=== PATIENT | female | born 1930 | race Caucasian/White ===

== ENCOUNTER → 2017-03-31 | Outpatient (CLI) | payer MEDICARE, OTHER ==
[2015-11-17 15:00] VITALS: BP 96/50
[~2017-03-31] MED LIST: ASPI81TA50 PO; CALC-112 PO; ERGO500027 PO; LATA2.5D3 OP; NAPR220C4 PO; OXYB10TA PO; OXYB5SYR2 PO; OXYC-327 PO; PREN1TAB12 PO; TOLT4CAP PO; TRAM50TA PO
--- NOTE | 2017-03-31 14:16 | RAD ---
Left leg venous Doppler study: Clinical indications: Left leg swelling and pain. Findings: Duplex sonography (including ramirez scale evaluation and color flow and waveform spectral analysis) of the proximal aspect of the greater saphenous vein and the proximal aspect of the profunda femoral vein and the entire length of the common femoral and superficial femoral and popliteal veins and the tibioperoneal trunk and the proximal aspect of the posterior tibial veins of the left leg was performed. Normal compressibility, augmentation of color Doppler flow after calf compression, and respiratory variation of Doppler flow is seen. Thus, there are no sonographic findings of deep venous thrombosis within these veins. Impression: There are no sonographic findings of deep venous thrombosis within the veins discussed above of the left lower extremity.
== END | disposition home or self-care (01) ==
LOC: US 15:57
PROVIDERS: ATTEND Physical Medicine & Rehabilitation
DX: M79.89 Other specified soft tissue disorders (principal)
CPT/HCPCS: 93971

== ENCOUNTER 2018-01-28 23:24 | Emergency (ER) | payer MEDICARE, OTHER ==
[2018-01-29] MEDS: MORPHINE SULFATE 4 MG/ML DISP.SYRIN. IM (01:43)
[2018-01-29] MEDS: predniSONE 20 MG TABLET PO (02:15)
== END 2018-01-29 03:07 | disposition home or self-care (01) ==
LOC: ER 23:24
DX: M25.551 Pain in right hip (principal); Z91.041 Radiographic dye allergy status
CPT/HCPCS: 73502; 96372; 99284; J2270; J7512

== ENCOUNTER → 2018-03-24 | Outpatient (CLI) | payer MEDICARE, OTHER | END | disposition home or self-care (01) | LOC: PMGWOUND 08:35 | DX: T25.221A Burn of second degree of right foot, initial encounter (principal); S91.331A Puncture wound without foreign body, right foot, initial encounter; T31.0 Burns involving less than 10% of body surface; N18.9 Chronic kidney disease, unspecified; M81.0 Age-related osteoporosis without current pathological fracture; M19.90 Unspecified osteoarthritis, unspecified site; G81.94 Hemiplegia, unspecified affecting left nondominant side; Z79.82 Long term (current) use of aspirin; Z96.653 Presence of artificial knee joint, bilateral; Z96.612 Presence of left artificial shoulder joint; X32.XXXA Exposure to sunlight, initial encounter; Y93.9 Activity, unspecified; Y99.8 Other external cause status; Y92.096 Garden or yard of other non-institutional residence as the place of occurrence of the external cause | CPT/HCPCS: 97597 ==

== ENCOUNTER → 2018-03-31 | Outpatient (CLI) | payer MEDICARE, OTHER | END | disposition home or self-care (01) | LOC: PMGWOUND 09:14 | DX: T25.021D Burn of unspecified degree of right foot, subsequent encounter (principal); S91.331D Puncture wound without foreign body, right foot, subsequent encounter; T31.0 Burns involving less than 10% of body surface; M81.0 Age-related osteoporosis without current pathological fracture; M19.90 Unspecified osteoarthritis, unspecified site; I21.4 Non-ST elevation (NSTEMI) myocardial infarction; N18.9 Chronic kidney disease, unspecified; Z96.612 Presence of left artificial shoulder joint; Z96.653 Presence of artificial knee joint, bilateral; X08.8XXD Exposure to other specified smoke, fire and flames, subsequent encounter | CPT/HCPCS: 97597 ==

== ENCOUNTER → 2018-04-14 | Outpatient (CLI) | payer MEDICARE, OTHER | END | disposition home or self-care (01) | LOC: PMGWOUND 09:20 | DX: T25.021D Burn of unspecified degree of right foot, subsequent encounter (principal); M81.0 Age-related osteoporosis without current pathological fracture; I21.4 Non-ST elevation (NSTEMI) myocardial infarction; M19.90 Unspecified osteoarthritis, unspecified site; N18.9 Chronic kidney disease, unspecified; T31.0 Burns involving less than 10% of body surface; Z96.653 Presence of artificial knee joint, bilateral; Z96.612 Presence of left artificial shoulder joint; X08.8XXD Exposure to other specified smoke, fire and flames, subsequent encounter | CPT/HCPCS: 99214 ==

== ENCOUNTER → 2018-04-28 | Outpatient (CLI) | payer MEDICARE, OTHER | END | disposition home or self-care (01) | LOC: PMGWOUND 09:23 | DX: T25.221D Burn of second degree of right foot, subsequent encounter (principal); S91.331D Puncture wound without foreign body, right foot, subsequent encounter; M81.0 Age-related osteoporosis without current pathological fracture; I21.4 Non-ST elevation (NSTEMI) myocardial infarction; M19.90 Unspecified osteoarthritis, unspecified site; N18.9 Chronic kidney disease, unspecified; T31.0 Burns involving less than 10% of body surface; Z96.653 Presence of artificial knee joint, bilateral; Z96.612 Presence of left artificial shoulder joint; X08.8XXD Exposure to other specified smoke, fire and flames, subsequent encounter | CPT/HCPCS: 97597 ==

== ENCOUNTER → 2018-05-12 | Outpatient (CLI) | payer MEDICARE, OTHER ==
[2018-03-15 07:00] VITALS: BP 126/53
[~2018-05-12] MED LIST changes: +CIPR250T30 PO; +HYDR-971 PO; +METH4TAB2 PO; +NAPR-677 PO
== END | disposition home or self-care (01) ==
LOC: PMGWOUND 09:11
PROVIDERS: ATTEND Emergency Medicine Undersea and Hyperbaric Medicine
DX: T25.221D Burn of second degree of right foot, subsequent encounter (principal); M81.0 Age-related osteoporosis without current pathological fracture; I21.4 Non-ST elevation (NSTEMI) myocardial infarction; M19.90 Unspecified osteoarthritis, unspecified site; N18.9 Chronic kidney disease, unspecified; T31.0 Burns involving less than 10% of body surface; Z96.653 Presence of artificial knee joint, bilateral; Z96.612 Presence of left artificial shoulder joint; Z79.82 Long term (current) use of aspirin; X08.8XXD Exposure to other specified smoke, fire and flames, subsequent encounter
CPT/HCPCS: 99214; G0463

== ENCOUNTER → 2018-06-02 | Outpatient (CLI) | payer MEDICARE, OTHER ==
[2018-03-15 07:00] VITALS: BP 126/53
== END | disposition home or self-care (01) ==
LOC: PMGWOUND 09:25
PROVIDERS: ATTEND Emergency Medicine Undersea and Hyperbaric Medicine
DX: L55.2 Sunburn of third degree (principal); M81.0 Age-related osteoporosis without current pathological fracture; N18.9 Chronic kidney disease, unspecified; Z79.82 Long term (current) use of aspirin
CPT/HCPCS: 99214; G0463

== ENCOUNTER → 2018-08-12 | Outpatient (CLI) | payer MEDICARE, OTHER ==
[2018-03-15 07:00] VITALS: BP 126/53
--- NOTE | 2018-08-12 12:44 | RAD ---
Carotid ultrasound, 08/12/2018: HISTORY: Aortic valve disease Duplex evaluation of the carotid arteries and neck was performed including grayscale, color-flow and spectral Doppler analysis. There is considerable atherosclerotic plaquing at both carotid bifurcations. This obscures the underlying vascular lumens. On the right, the peak systolic velocity in the proximal internal carotid artery was 121 cm per sec with an end-diastolic velocity of 30 cm/s producing an internal carotid to common carotid artery ratio 1.6. These Doppler findings suggest narrowing in the 0-50 percent diameter range. On the left, a higher velocity of 172 cm/s was obtained from what was thought to be the proximal internal carotid artery, however, that cannot be stated with certainty due to poor definition of the vessels through this region. Antegrade flow is present in both vertebral arteries in the neck. IMPRESSION: Extensive calcific plaquing at both carotid bifurcations with 0-50 percent diameter narrowing of the proximal right internal carotid artery. There is probably more severe narrowing on the left, however, the internal carotid artery was not clearly delineated due to shadowing from the plaquing. CT angiography is suggested for further evaluation, if clinically indicated. Note: Stenosis calculations for CT, MRA and conventional angiography are based upon determination of the distal ICA diameter in accordance with the NASCET methodology. Stenosis calculations for Doppler studies are derived from validated velocity criteria which are known to correlate with NASCET methodology of determining stenosis. Electronically signed by: Sandeep Grayson MD (08/12/2018 12:40 PM) [facility]
--- NOTE | 2018-08-16 17:11 | CARD ---
MR#: [id number] Date of Study: 08/12/2018 Ordering Physician: CLIVE HERRERA, Referring Physician: CLIVE HERRERA, Tech: Nadya Harley LASHAY APPROVED REPORT EXAM: Two-dimensional and M-mode echocardiogram with Doppler and color Doppler. Other Information Quality : AverageHR: 61bpm Rhythm : NSR INDICATION Aortic Valve Disease Mitral Valve Disease 2D DIMENSIONS Left Atrium(2D)3.9 (1.6-4.0cm)IVSd1.4 (0.7-1.1cm) Aortic Root(2D)3.2 (2.0-3.7cm)LVDd4.1 (3.9-5.9cm) LVOT Diameter1.8 (1.8-2.4cm)PWd1.1 (0.7-1.1cm) IVSs1.5 (0.8-1.2cm)LVDs2.3 (2.5-4.0cm) FS (%) 42.6 %PWs1.7 (0.8-1.2cm) SV54.9 mlLVEF(%)70.0 (>50%) M-Mode DIMENSIONS Left Atrium(MM)3.57 (2.5-4.0cm)Aortic Root3.40 (2.2-3.7cm) Aortic Valve AoV Peak Lior.252.3cm/sAoV VTI59.9cm AO Peak GR.28.0mmHgLVOT Peak Lior.89.2cm/s LVOT VTI 22.04cmAO Mean GR.16mmHg SANDEE (VMAX)0.11rn8PCW (VTI)0.93cm2 Mitral Valve MV E Dfxijnwn89.0cm/sMV E Peak Gr.103mmHg MV DECEL [id number] A Ptfdddtd774.4cm/s MV FRT371ilJ/A Ratio0.6 MVA (PHT)2.02cm2 TDI E/Lateral E'11.7E/Medial E'15.8 Pulmonary Valve PV Peak Tqmumbcz45.3cm/sPV Peak Grad.4mmHg Tricuspid Valve TR P. Zrbfrnua057aw/sRAP XGOOBHVN1cpIw TR Peak Gr.66icRuRZFD07ufEa LEFT VENTRICLE The left ventricle is normal size. There is mild concentric left ventricular hypertrophy. The left ve ntricular systolic function is normal and the ejection fraction is within normal range. The Ejection Fraction is 70%. There is normal LV segmental wall motion. Transmitral Doppler flow pattern is Grade III-reversible restrictive diastolic dysfunction. RIGHT VENTRICLE The right ventricle is dilated. There is normal right ventricular wall thickness. The right ventricul ar systolic function is normal. ATRIA The left atrium size is normal. The right atrium size is mildly dilated. The interatrial septum is in tact with no evidence for an atrial septal defect or patent foramen ovale as noted on 2-D or Doppler imaging. AORTIC VALVE The aortic valve is trileaflet. The aortic valve is moderately calcified. Doppler and Color Flow reve aled mild aortic regurgitation. There is mild to moderate valvular aortic stenosis. Calculated aortic valve area is 0.93 cm2 with maximum pressure gradient of 28 mmHg and mean pressure gradient of 16 mm Hg. MITRAL VALVE The mitral valve leaflets are calcified. There is no evidence of mitral valve prolapse. There is no m itral valve stenosis. Doppler and Color-flow revealed moderate mitral regurgitation. TRICUSPID VALVE The tricuspid valve is normal in structure and function. Doppler and Color Flow revealed trace to mil d tricuspid regurgitation. The PA pressure was estimated at 25 mmHg. There is no tricuspid valve prol apse or vegetation. There is no tricuspid valve stenosis. PULMONIC VALVE Pulmonic valve not well visualized. Doppler and Color Flow revealed no pulmonic valvular regurgitatio n. There is no pulmonic valvular stenosis. GREAT VESSELS The aortic root is normal in size. The ascending aorta is normal in size. PERICARDIAL EFFUSION There is no evidence of significant pericardial effusion. Critical Notification Critical Value: No <Conclusion> The left ventricular systolic function is normal and the ejection fraction is within normal range. T he Ejection Fraction is 70%. There is mild concentric left ventricular hypertrophy. Transmitral Doppler flow pattern is Grade III-reversible restrictive diastolic dysfunction. The right ventricle is dilated. The left atrium size is normal. The right atrium size is mildly dilated. The aortic valve is trileaflet. The aortic valve is moderately calcified. Doppler and Color Flow revealed mild aortic regurgitation. There is mild to moderate valvular aortic stenosis. Calculated aortic valve area is 0.93 cm2 with maximum pressure gradient of 28 mmHg and mean pressure gradient of 16 mmHg. Doppler and Color-flow revealed moderate mitral regurgitation. Doppler and Color Flow revealed trace to mild tricuspid regurgitation. The PA pressure was estimated at 25 mmHg. Pulmonic valve not well visualized. There is no evidence of significant pericardial effusion. Signed by : Clive Herrera MD Electronically Approved : 08/16/2018 17:10:02
== END | disposition home or self-care (01) ==
LOC: US 13:09
PROVIDERS: ATTEND Internal Medicine Cardiovascular Disease
DX: I08.0 Rheumatic disorders of both mitral and aortic valves (principal)
CPT/HCPCS: 93306; 93880

== ENCOUNTER 2018-12-03 08:55 | Emergency (ER) | payer MEDICARE, OTHER ==
[~2018-12-03] VITALS: Ht 162.6 cm; Wt 67.1 kg
[~2018-12-03 08:55] MED LIST changes: +HYDR-3164 PO; -HYDR-971 PO; -OXYC-327 PO; +OXYC1TAB19 PO
[2018-12-03 09:10] VITALS: BP 111/72
--- NOTE | 2018-12-03 10:57 | RAD ---
3 views right ankle HISTORY: Pain and swelling AP lateral oblique views There is gross osteopenia limiting sensitivity for possible nondisplaced fracture. The tibiotalar relationship is normal. There is deformity of the second metatarsal. IMPRESSION: Deformity of the second metatarsal appears to be an old fracture. No acute findings. 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 The visualized osseous structures appear grossly intact. There is arterial calcification. IMPRESSION: No acute findings. Electronically signed by: Jon Whitt III, MD (12/03/2018 10:54 AM) [facility]
--- NOTE | 2018-12-03 11:09 | PHYS DOC ---
Past Medical History Past Medical History: Other Additional Past Medical Histor: CHRONIC PAIN Past Surgical History: Other Additional Past Surgical Histo: shoulder ; knee; back Alcohol Use: None Drug Use: None Adult General Chief Complaint Chief Complaint: ANKLE PROBLEM [facility] HPI Patient is a 87 year old female who presents with pain in her right ankle after she states she stepped down wrong. She states that it hurts over the top of her fourth metatarsal wraps around to her medial malleolus. She denies falls or other injury. She has taken itax-xnb-vloohdi pain medication with moderate relief. Review of Systems Review of Systems Constitutional: Denies fever or chills [] Respiratory: Denies cough or shortness of breath [] Cardiovascular: No additional information not addressed in HPI [] GI: Denies abdominal pain, nausea, vomiting, bloody stools or diarrhea [] : Denies dysuria or hematuria [] Musculoskeletal: See history of present illness Integument: Denies rash or skin lesions [] Neurologic: Denies headache, focal weakness or sensory changes [] Endocrine: Denies polyuria or polydipsia [] All other systems were reviewed and found to be within normal limits, except as documented in this note. Allergies Allergies Allergies Coded Allergies Type Severity Reaction Last Updated Verified No Known Medication Allergies Allergy Unknown 03/14/18 Yes Iodinated Contrast- Oral and IV Dye Adverse Reaction Intermediate Diarrhea 08/21 Yes Physical Exam Physical Exam Constitutional: Well developed, well nourished, no acute distress, non-toxic appearance. [] Cardiovascular:Heart rate regular rhythm, no murmur [] Lungs & Thorax: Bilateral breath sounds clear to auscultation [] Abdomen: Bowel sounds normal, soft, no tenderness, no masses, no pulsatile masses. [] Skin: Warm, dry, no erythema, no rash. [] Back: No tenderness, no CVA tenderness. [] Extremities: tenderness to the right ankle with no gross deformity noted, no cyanosis, no clubbing, ROM slightly decreased due to pain, no edema. [] Neurologic: Alert and oriented X 3, normal motor function, normal sensory function, no focal deficits noted. [] Psychologic: Affect normal, judgement normal, mood normal. [] Current Patient Data Vital Signs Vital Signs Date Time Temp Pulse Resp B/P (MAP) Pulse Ox O2 Delivery O2 Flow Rate FiO2 12/03/18 09:10 97.7 63 16 111/72 (85) 97 Room Air 97.7 EKG EKG [] Radiology/Procedures Radiology/Procedures []PATIENT: SR LAURA RICHMONDACCOUNT: [id number]#: [id number] : 1930 LOCATION: ER AGE: 87 SEX: F EXAM STATUS: REG ER ORD. PHYSICIAN: RACHEL VICTORIA APRN REASON: pain after stepping down wrong PROCEDURE: ANKLE RIGHT 3V 3 views right ankle HISTORY: Pain and swelling AP lateral oblique views There is gross osteopenia limiting sensitivity for possible nondisplaced fracture. The tibiotalar relationship is normal. There is deformity of the second metatarsal. IMPRESSION: Deformity of the second metatarsal appears to be an old fracture. No acute findings. 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 The visualized osseous structures appear grossly intact. There is arterial calcification. IMPRESSION: No acute findings. Electronically signed by: Luis Covington III, MD (12/03/2018 10:54 AM) [facility] DICTATED and SIGNED BY: LUIS COVINGTON III, MD DATE: 12/03/18 105 Course & Med Decision Making Course & Med Decision Making Pertinent Labs and Imaging studies reviewed. (See chart for details) []The patient was negative for acute fracture. She was placed in an Angelito wrap for comfort. Dragon Disclaimer Dragon Disclaimer This electronic medical record was generated, in whole or in part, using a voice recognition dictation system. Departure Departure Impression: Primary Impression: Foot pain Disposition: 01 HOME, SELF-CARE Condition: STABLE Referrals: ZAHEER CASTELLON MD (PCP) Patient Instructions: Foot Sprain Additional Instructions: You may take ibuprofen and Tylenol or pain. Follow-up with podiatry for a recheck if not improving in one week. RACHEL VICTORIA APRN Dec 03, 2018 11:09
[2019-03-14] MEDS ORDERED: GABA300C18 PO (14:29)
[2019-03-14] MEDS ORDERED: PROP15DR EACHEYE (14:29)
[2019-03-14] MEDS ORDERED: TRAM50TA PO (14:29)
== END 2018-12-03 11:20 | disposition home or self-care (01) ==
LOC: ER 08:55
DX: M25.571 Pain in right ankle and joints of right foot (principal); G89.29 Other chronic pain; M85.871 Other specified disorders of bone density and structure, right ankle and foot; Z91.041 Radiographic dye allergy status; Z98.890 Other specified postprocedural states
CPT/HCPCS: 73590; 73610; 99283

== ENCOUNTER → 2019-03-15 | Outpatient (CLI) | payer MEDICARE, OTHER ==
[~2019-03-15] MED LIST changes: +GABA300C18 PO; +GADOTERATE 7.5 MMOL/15ML VIAL. IVP ONE; +PROP15DR EACHEYE
--- NOTE | 2019-03-15 17:06 | KCIC ---
MRI of the lumbar spine without and with contrast 03/15/2019 CLINICAL HISTORY: Low back pain. History of previous lumbar spine surgery. TECHNIQUE: Unenhanced T1-weighted and T2-weighted sagittal and axial inversion recovery sagittal images of the lumbar spine were obtained. After the intravenous administration of 13.5 cc of Dotarem enhanced T1-weighted sagittal and axial images of the lumbar spine were obtained. FINDINGS: Comparison is made to radiographs of the lumbar spine dated 06/23/2010. Very mild S-shaped curvature of the thoracolumbar spine is seen. The patient is post left sided fusion using pedicle screws and stabilizing rods extending from L2 to L5. Bone graft material seen within the L2-3 disc space. Fusion across the L3-4 disc space is seen. Degenerative signal changes are seen involving the L1-2, L4-5 and L5-S1 discs. Loss of height of the L4-5 disc is noted. Degenerative signal changes are seen within the marrow surrounding all the disks of the lumbar spine. An old compression fracture of the L1 vertebral body is seen. This vertebral body has lost approximately 80 percent of its normal height. No significant retropulsion of bone fragments into the central spinal canal is seen. No acute compression fracture of the lumbar vertebrae is noted. The conus medullaris is normal in position and signal characteristics. A 1 cm rounded high signal intensity lesion is involving the midpole left kidney on the T2-weighted images. This likely represents a cyst. At the T11-12 disc space there is a mild to moderate generalized disc bulge. Degenerative changes are seen involving the facet joints bilaterally. These findings result in mild central spinal canal stenosis without evidence of cord impingement. No neural foraminal stenosis is seen. At the T12-L1 disc space there is a mild to moderate generalized disc bulge. Patient is post laminectomy. Degenerative changes are seen involving the facet joints bilaterally. These findings do not result in significant central spinal canal stenosis. Mild to moderate right greater than left neural foraminal stenosis is seen. At the L1-2 disc space there is a mild to moderate generalized disc bulge. Posterior vertebral body osteophyte formation is seen which measures 5 mm in AP diameter. Degenerative changes are seen involving the facet joints bilaterally. There is moderate ligamentum flavum hypertrophy bilaterally. These findings result in severe central spinal canal stenosis. Moderate right greater than left neural foraminal stenosis is seen. At the L2-3 level the patient is post laminectomy. Degenerative changes are seen involving the facet joints bilaterally. These findings do not result in significant central spinal canal stenosis. Mild bilateral neural foraminal stenosis is seen. At the L3-4 level patient is post right hemilaminotomy. Degenerative changes are seen involving the facet joints bilaterally. These findings do not result in significant central spinal canal stenosis. Mild to moderate left greater than right neural foraminal stenosis is seen. At the L4-5 disc space, the patient is post left hemilaminotomy. Degenerative changes are seen involving the facet joints bilaterally. There is mild right ligamentum flavum hypertrophy. There is prominence of the posterior epidural fat. These findings when combined do not result in significant central spinal canal stenosis. Mild to moderate left greater than right neural foraminal stenosis is seen. At the L5-S1 disc space is a moderate generalized disc bulge. Degenerative changes are seen involving the facet joints bilaterally. There is moderate ligamentum flavum hypertrophy bilaterally. These findings when combined result in mild to moderate central spinal canal stenosis. Moderate to severe left greater than right neural foraminal stenosis is seen. IMPRESSION: 1. Extensive postsurgical changes are seen as discussed above. 2. The changes of degenerative disc disease are seen throughout the lower thoracic and throughout the lumbar spine. These findings result in mild central spinal canal stenosis at T11-12, severe central spinal canal stenosis at L1-2 and mild to moderate central spinal canal stenosis at L5-S1. Multilevel neural foraminal stenosis of varying severity is seen as discussed above. Electronically signed by: Flavio Martinez MD (03/15/2019 5:03 PM) [facility]
== END | disposition home or self-care (01) ==
LOC: KCIC MRI 13:05
PROVIDERS: ATTEND Physician Assistant Surgical
DX: M51.15 Intervertebral disc disorders with radiculopathy, thoracolumbar region (principal); M51.17 Intervertebral disc disorders with radiculopathy, lumbosacral region; M47.25 Other spondylosis with radiculopathy, thoracolumbar region; M47.28 Other spondylosis with radiculopathy, sacral and sacrococcygeal region; M48.05 Spinal stenosis, thoracolumbar region; M48.08 Spinal stenosis, sacral and sacrococcygeal region; M25.78 Osteophyte, vertebrae; N28.9 Disorder of kidney and ureter, unspecified
CPT/HCPCS: 72158; 82565; A9575

== ENCOUNTER 2019-08-02 07:51 | Inpatient (IN) | payer MEDICARE, OTHER ==
[~2019-08-02] VITALS: Ht 162.6 cm; Wt 74.2 kg
[~2019-08-02 07:51] MED LIST changes: -GADOTERATE 7.5 MMOL/15ML VIAL. IVP ONE; -OXYB10TA PO; +OXYB10TA2 PO
[2019-08-02] MEDS ORDERED: ASPIRIN CHEWABLE 81 MG TABLET. PO ONE (08:15)
[2019-08-02] MEDS ORDERED: NITROGLYCERIN SUBLINGUAL 0.4 MG BOTTLE OF 25. SL PRN ×2 (08:15→09:30)
[2019-08-02 08:25] LABS: BASO # 0.1 x10^3/uL (0.0-0.2); BASO % 1 % (0-3); EOS # 0.2 x10^3/uL (0.0-0.7); EOS % 3 % (0-3); HEMATOCRIT 34.2 % (36.0-47.0); HEMOGLOBIN 11.5 g/dL (12.0-15.5); LYMPH # 1.7 x10^3/uL (1.0-4.8); LYMPH % 20 % (24-48); MEAN CORPUSCULAR HEMOGLOBIN 34 pg (25-35); MEAN CORPUSCULAR HGB CONC 34 g/dL (31-37); MEAN CORPUSCULAR VOLUME 102 fL (79-100); MONO # 0.7 x10^3/uL (0.0-1.1); MONO % 8 % (0-9); NEUT # 5.9 x10^3/uL (1.8-7.7); NEUT % 69 % (31-73); PLATELET COUNT 263 x10^3/uL (140-400); RED BLOOD COUNT 3.34 x10^6/uL (3.50-5.40); RED CELL DISTRIBUTION WIDTH 17.8 % (11.5-14.5); WHITE BLOOD COUNT 8.7 x10^3/uL (4.0-11.0)
[2019-08-02 08:29] LABS: CALCIUM 8.6 mg/dL (8.5-10.1); GFR 52.3
[2019-08-02 08:34] LABS: ALBUMIN 3.4 g/dL (3.4-5.0); ALBUMIN/GLOBULIN RATIO 1.1 (1.0-1.7); TOTAL BILIRUBIN 0.3 mg/dL (0.2-1.0); TOTAL PROTEIN 6.6 g/dL (6.4-8.2)
--- NOTE | 2019-08-02 09:08 | RAD ---
CHEST AP ONLY Clinical Indication: Chest pain. Comparison: AP chest March 14, 2018. Findings: Atherosclerotic and tortuous thoracic aorta. The cardiac size is normal. Lungs are clear. There is no pneumothorax. No pleural effusion is appreciated. No acute bone abnormality. There are bilateral shoulder arthroplasties. Old compression fracture and vertebroplasty in the mid thoracic spine. IMPRESSION: No acute cardiopulmonary process. Electronically signed by: Carlos Anderson MD (08/02/2019 9:05 AM) [id number]
--- NOTE | 2019-08-02 09:30 | PHYS DOC ---
Past Medical History Past Medical History: Other Additional Past Medical Histor: CHRONIC PAIN Past Surgical History: Other Additional Past Surgical Histo: shoulder ; knee; back Alcohol Use: None Drug Use: None Adult General Chief Complaint Chief Complaint: CHEST PAIN HPI HPI Patient is a 88 year old female presents with chest pressure and shortness breath upon waking this morning. Patient describes ventral chest pressure with sensation of shortness of breath. No nausea vomiting sweats. No Malik pain, back pain. No fevers chills or cough. Denies history of CAD. No other acute symptoms or complaints. [] Review of Systems Review of Systems Review symptoms as per history of present illness. All other review symptoms are negative. All other systems were reviewed and found to be within normal limits, except as documented in this note. Current Medications Current Medications Current Medications Medications (Trade) Dose Ordered Sig/Carey Start Time Stop Time Status Last Admin Dose Admin Aspirin (Children'S Aspirin) 324 mg 1X ONCE 08/02/19 08:15 08/02/19 08:16 DC 08/02/19 08:26 324 MG Nitroglycerin (Nitrostat) 0.4 mg PRN Q5MIN PRN 08/02/19 09:30 Allergies Allergies Allergies Coded Allergies Type Severity Reaction Last Updated Verified No Known Medication Allergies Allergy Unknown 03/14/18 Yes Iodinated Contrast Media Adverse Reaction Intermediate Diarrhea 03/14/18 Yes Physical Exam Physical Exam Constitutional: Well developed, well nourished, no acute distress, non-toxic appearance. [] HENT: Normocephalic, atraumatic, bilateral external ears normal, oropharynx moist, no oral exudates, nose normal. [] Eyes: PERRLA, EOMI, conjunctiva normal, no discharge. [] Neck: Normal range of motion, no tenderness, supple, no stridor. [] Cardiovascular:Heart rate regular rhythm, no murmur [] Lungs & Thorax: Bilateral breath sounds clear to auscultation. [] Abdomen: Bowel sounds normal, soft, no tenderness. [] Skin: Warm, dry, no erythema, no rash. [] Back: No tenderness. [] Extremities: No tenderness, no edema. [] Neurologic: Alert and oriented X 3, normal motor function, normal sensory function, no focal deficits noted. [] Psychologic: Affect normal, judgement normal, mood normal. [] Current Patient Data Vital Signs Vital Signs Date Time Temp Pulse Resp B/P (MAP) Pulse Ox O2 Delivery O2 Flow Rate FiO2 08/02/19 09:29 70 16 134/63 (86) 95 08/02/19 08:36 Room Air 08/02/19 07:55 97.8 97.8 Lab Values Laboratory Tests Test 08/02/19 08:15 White Blood Count 8.7 x10^3/uL (4.0-11.0) Red Blood Count 3.34 x10^6/uL (3.50-5.40) L Hemoglobin 11.5 g/dL (12.0-15.5) L Hematocrit 34.2 % (36.0-47.0) L Mean Corpuscular Volume 102 fL (79-100) H Mean Corpuscular Hemoglobin 34 pg (25-35) Mean Corpuscular Hemoglobin Concent 34 g/dL (31-37) Red Cell Distribution Width 17.8 % (11.5-14.5) H Platelet Count 263 x10^3/uL (140-400) Neutrophils (%) (Auto) 69 % (31-73) Lymphocytes (%) (Auto) 20 % (24-48) L Monocytes (%) (Auto) 8 % (0-9) Eosinophils (%) (Auto) 3 % (0-3) Basophils (%) (Auto) 1 % (0-3) Neutrophils # (Auto) 5.9 x10^3/uL (1.8-7.7) Lymphocytes # (Auto) 1.7 x10^3/uL (1.0-4.8) Monocytes # (Auto) 0.7 x10^3/uL (0.0-1.1) Eosinophils # (Auto) 0.2 x10^3/uL (0.0-0.7) Basophils # (Auto) 0.1 x10^3/uL (0.0-0.2) D-Dimer (Cathryn) 1.50 ug/mlFEU (0.00-0.50) H Sodium Level 144 mmol/L (136-145) Potassium Level 4.0 mmol/L (3.5-5.1) Chloride Level 108 mmol/L (98-107) H Carbon Dioxide Level 30 mmol/L (21-32) Anion Gap 6 (6-14) Blood Urea Nitrogen 29 mg/dL (7-20) H Creatinine 1.0 mg/dL (0.6-1.0) Estimated GFR (Cockcroft-Gault) 52.3 BUN/Creatinine Ratio 29 (6-20) H Glucose Level 121 mg/dL (70-99) H Calcium Level 8.6 mg/dL (8.5-10.1) Total Bilirubin 0.3 mg/dL (0.2-1.0) Aspartate Amino Transferase (AST) 17 U/L (15-37) Alanine Aminotransferase (ALT) 14 U/L (14-59) Alkaline Phosphatase 89 U/L (46-116) Troponin I Quantitative < 0.017 ng/mL (0.000-0.055) Total Protein 6.6 g/dL (6.4-8.2) Albumin 3.4 g/dL (3.4-5.0) Albumin/Globulin Ratio 1.1 (1.0-1.7) Lipase 53 U/L (73-393) L Laboratory Tests 08/02/19 08:15 Laboratory Tests 08/02/19 08:15 EKG EKG [EKG: reviewed] Radiology/Procedures Radiology/Procedures [Chest x-ray/CTA chest: Reviewed] Course & Med Decision Making Course & Med Decision Making Pertinent Labs and Imaging studies reviewed. (See chart for details) [Partial improvement/resolution of chest pain with nitroglycerin 1. Patient's refuses additional nitroglycerin and pain medication doses while in the emergency department. Will admit to the hospitalist service evaluation and treatment.] Dragon Disclaimer Dragon Disclaimer This electronic medical record was generated, in whole or in part, using a voice recognition dictation system. Departure Departure Impression: Primary Impression: Chest pain Disposition: ADMITTED INPATIENT Condition: STABLE Referrals: ZAHEER CASTELLON MD (PCP) VICENTE JARAMILLO DO Aug 02, 2019 09:30
[2019-08-02] MEDS ORDERED: FAMOTIDINE 20 MG/2 ML VIAL IVP ONE (09:45)
[2019-08-02] MEDS ORDERED: IOHEXOL 350 MG/ML 100 ML VIAL. IV ONE (10:30)
[2019-08-02] MEDS ORDERED: CONTRAST GIVEN. MC PRN (10:45)
[2019-08-02] MEDS ORDERED: fentaNYL PF VIAL 100 MCG/2 ML VIAL IVP ONE (11:45)
[2019-08-02] MEDS ORDERED: ONDANSETRON PF 4 MG/2 ML VIAL. IVP ONE (11:45)
--- NOTE | 2019-08-02 12:22 | RAD ---
CT ANGIOGRAPHY CHEST History: Chest pain. Elevated d-dimer. Technique: CT of the chest was performed with contrast. PE protocol. Maximum intensity projection coronal and sagittal reconstructions were performed. Exposure: One or more of the following individualized dose reduction techniques were utilized for this examination: 1. Automated exposure control 2. Adjustment of the mA and/or kV according to patient size 3. Use of iterative reconstruction technique. Comparison: None Findings: Chest: No pulmonary embolism. No aortic dissection or aneurysm. Extensive atheromatous calcification throughout the aorta and branch vessels. No pathologic axillary, mediastinal or hilar adenopathy. No focal consolidation. Bilateral lower lobe subsegmental atelectasis. Respiratory motion degrades evaluation of the lung bases. No pleural effusion. Small hiatal hernia. Upper abdomen: The imaged upper abdomen is unremarkable. Bones: Bilateral shoulder arthroplasty produce significant beam hardening artifact degrading evaluation of the upper chest. Chronic T6 and L1 compression fracture with vertebroplasty material. Impression: 1. No acute intrathoracic pathology. No pulmonary embolism. 2. Bilateral lower lobe subsegmental atelectasis. Electronically signed by: Justin Ackerman DO (08/02/2019 12:19 PM) [facility]
[2019-08-02 12:51] VITALS: BP 142/58
--- NOTE | 2019-08-02 13:31 | PDOC1 ---
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 Patient describes central chest pressure with sensation of shortness of breath. No nausea vomiting or diaphoresis. She denies abdominal pain, back pain. No fevers chills or cough. Denies history of CAD. No other acute symptoms or complaints. On further review she notes an NSTEMI last year when she had heat stroke after falling out of her wheelchair while gardening. She was seen by Dr. Bravo previously for this and aortic stenosis. In ED was noted with elevated BUN and as she had chest pain and d dimer was elevated underwent CTPA which was negative. Her chest pain resolved initially with NTG and ASA administration and so is being admitted for further evaluation and treatment. Past Medical History Cardiovascular: Other Pulmonary: No pertinent hx CENTRAL NERVOUS SYSTEM: Other GI: No pertinent hx Heme/Onc: No pertinent hx Hepatobiliary: No pertinent hx Psych: No pertinent hx Musculoskeletal: Osteoarthritis Rheumatologic: No pertinent hx Infectious disease: No pertinent hx Renal/: Chronic renal insuff Endocrine: No pertinent hx Past Surgical History Past Surgical History: Total knee replacement, Other Family History Family History Lives at [facility] Family History: Heart Disease, Family History Unknown Social History Smoke: No ALCOHOL: none Drugs: None Current Problem List Problem List Problems Medical Problems: (1) Chest pain Status: Acute Current Medications Current Medications Current Medications Nitroglycerin (Nitrostat) 0.4 mg PRN Q5MIN PRN SL CHEST PAIN Last administered on 08/02/19at 08:26; Start 08/02/19 at 08:15; Stop 08/02/19 at 09:32; Status DC Aspirin (Children'S Aspirin) 324 mg 1X ONCE PO Last administered on 08/02/19at 08:26; Start 08/02/19 at 08:15; Stop 08/02/19 at 08:16; Status DC Famotidine (Pepcid Vial) 20 mg 1X ONCE IVP Last administered on 08/02/19at 09:44; Start 08/02/19 at 09:45; Stop 08/02/19 at 09:46; Status DC Nitroglycerin (Nitrostat) 0.4 mg PRN Q5MIN PRN SL CHEST PAIN; Start 08/02/19 at 09:30 Iohexol (Omnipaque 350 Mg/ml) 75 ml 1X ONCE IV Last administered on 08/02/19at 11:19; Start 08/02/19 at 10:30; Stop 08/02/19 at 10:35; Status DC Info (CONTRAST GIVEN -- Rx MONITORING) 1 each PRN DAILY PRN MC SEE COMMENTS; Start 08/02/19 at 10:45; Stop 08/04/19 at 10:44 Fentanyl Citrate (Fentanyl 2ml Vial) 50 mcg 1X ONCE IVP ; Start 08/02/19 at 11:45; Stop 08/02/19 at 11:46; Status DC Ondansetron HCl (Zofran) 4 mg 1X ONCE IVP ; Start 08/02/19 at 11:45; Stop 08/02/19 at 11:46; Status DC Active Scripts Active Cipro (Ciprofloxacin Hcl) 250 Mg Tablet 500 Mg PO BID 7 Days Reported Systane 0.3-0.4% Eye Drops (Propylene Glycol/Peg 400) 15 Ml Drops 1 Drop EACHEYE QID Gabapentin 300 Mg Capsule 300 Mg PO TID Tramadol Hcl 50 Mg Tablet 50 Mg PO DAILY PRN Naproxen Sodium 550 Mg Tablet 2 Tab PO DAILY Latanoprost 2.5 Ml Drops 1 Drop OP DAILY Oxybutynin Chloride Er (Oxybutynin Chloride) 10 Mg Tab.er.24 10 Mg PO DAILY Aspir-Low (Aspirin) 81 Mg Tablet.dr 1 Tab PO DAILY Allergies Allergies: Coded Allergies: No Known Medication Allergies (Verified Allergy, Unknown, 03/14/18) Iodinated Contrast Media (Verified Adverse Reaction, Intermediate, Diarrhea, 03/14/18) ROS General: YES: Fatigue, Malaise; No: Chills, Night Sweats, Appetite, Other PSYCHOLOGICAL ROS: No: Anxiety, Behavioral Disorder, Concentration difficultie, Decreased libido, Depression, Disorientation, Hallucinations, Hostility, Irritablity, Memory difficulties, Mood Swings, Obsessive thoughts, Physical abuse, Sexual abuse, Sleep disturbances, Suicidal ideation, Other Eyes: No Blurry vision, No Decreased vision, No Double vision, No Dry eyes, No Excessive tearing, No Eye Pain, No Itchy Eyes, No Loss of vision, No Photophobia, No Scotomata, No Uses contacts, No Uses glasses, No Other HEENT: No: Heacaches, Visual Changes, Hearing change, Nasal congestion, Nasal discharge, Oral lesions, Sinus pain, Sore Throat, Epistaxis, Sneezing, Snoring, Tinnitus, Vertigo, Vocal changes, Other ALLERGY AND IMMUNOLOGY: No: Hives, Insect Bite Sensitivity, Itchy/Watery Eyes, Nasal Congestion, Post Nasal Drip, Seasonal Allergies, Other Hematological and Lymphatic: No: Bleeding Problems, Blood Clots, Blood Transfusions, Brusing, Night Sweats, Pallor, Swollen Lymph Nodes, Other ENDOCRINE: No: Breast Changes, Galactorrhea, Hair Pattern Changes, Hot Flashes, Malaise/lethargy, Mood Swings, Palpitations, Polydipsia/polyuria, Skin Changes, Temperature Intolerance, Unexpected Weight Changes, Other Breast: No New/Changing Breast Lumps, No Nipple changes, No Nipple discharge, No Other Respiratory: No: Cough, Hemoptysis, Orthopnea, Pleuritic Pain, Shortness of breath, SOB with excertion, Sputum Changes, Stridor, Tachypnea, Wheezing, Other Cardiovascular: yes Chest Pain; No Palpitations, No Orthopnea, No Paroxysmal Noc. Dyspnea, No Edema, No Lt Headedness, No Other Gastrointestinal: Yes Nausea; No Vomiting, No Abdominal Pain, No Diarrhea, No Constipation, No Melena, No Hematochezia, No Other Genitourinary: No Dysuria, No Frequency, No Incontinence, No Hematuria, No Retention, No Discharge, No Urgency, No Pain, No Flank Pain, No Other, No , No , No , No , No , No , No Musculoskeletal: Yes Gait Disturbance; No Joint Pain, No Joint Stiffness, No Joint Swelling, No Muscle Pain, No Muscular Weakness, No Pain In:, No Swelling In:, No Other Neurological: Yes Gait Disturbance; No Behavorial Changes, No Bowel/Bladder ControlChng, No Confusion, No Dizziness, No Headaches, No Impaired Coord/balance, No Memory Loss, No Numbness/Tingling, No Seizures, No Speech Problems, No Tremors, No Visual Changes, No Weakness, No Other Skin: No Dry Skin, No Eczema, No Hair Changes, No Lumps, No Mole Changes, No Mottling, No Nail Changes, No Pruritus, No Rash, No Skin Lesion Changes, No Other, No Acne Physical Exam General: Alert, Oriented X3, Cooperative, No acute distress HEENT: Atraumatic, PERRLA, EOMI, Mucous membr. moist/pink Lungs: Clear to auscultation, Normal air movement Heart: S1S2, RRR, murmurs (3/6 ALEN) Abdomen: Normal bowel sounds, Soft, No tenderness, No hepatosplenomegaly, No masses Rectal Exam: not examined Extremities: No clubbing, No cyanosis, No edema, No tenderness/swelling, Other (Decreased pulses in bilateral DP and PT) Skin: No rashes, No breakdown, No significant lesion Neuro: Normal speech, Strength at 5/5 X4 ext, Cranial nerves 3-12 NL, Reflexes 2+, Other (Decreased sensation in bilateral feet) Vitals Vitals Vital Signs Date Time Temp Pulse Resp B/P (MAP) Pulse Ox O2 Delivery O2 Flow Rate FiO2 08/02/19 12:51 98.7 69 18 142/58 (86) 95 Room Air 98.7 Labs Labs Laboratory Tests Test 08/02/19 08:15 White Blood Count 8.7 x10^3/uL (4.0-11.0) Red Blood Count 3.34 x10^6/uL (3.50-5.40) Hemoglobin 11.5 g/dL (12.0-15.5) Hematocrit 34.2 % (36.0-47.0) Mean Corpuscular Volume 102 fL (79-100) Mean Corpuscular Hemoglobin 34 pg (25-35) Mean Corpuscular Hemoglobin Concent 34 g/dL (31-37) Red Cell Distribution Width 17.8 % (11.5-14.5) Platelet Count 263 x10^3/uL (140-400) Neutrophils (%) (Auto) 69 % (31-73) Lymphocytes (%) (Auto) 20 % (24-48) Monocytes (%) (Auto) 8 % (0-9) Eosinophils (%) (Auto) 3 % (0-3) Basophils (%) (Auto) 1 % (0-3) Neutrophils # (Auto) 5.9 x10^3/uL (1.8-7.7) Lymphocytes # (Auto) 1.7 x10^3/uL (1.0-4.8) Monocytes # (Auto) 0.7 x10^3/uL (0.0-1.1) Eosinophils # (Auto) 0.2 x10^3/uL (0.0-0.7) Basophils # (Auto) 0.1 x10^3/uL (0.0-0.2) D-Dimer (Cathryn) 1.50 ug/mlFEU (0.00-0.50) Sodium Level 144 mmol/L (136-145) Potassium Level 4.0 mmol/L (3.5-5.1) Chloride Level 108 mmol/L (98-107) Carbon Dioxide Level 30 mmol/L (21-32) Anion Gap 6 (6-14) Blood Urea Nitrogen 29 mg/dL (7-20) Creatinine 1.0 mg/dL (0.6-1.0) Estimated GFR (Cockcroft-Gault) 52.3 BUN/Creatinine Ratio 29 (6-20) Glucose Level 121 mg/dL (70-99) Calcium Level 8.6 mg/dL (8.5-10.1) Total Bilirubin 0.3 mg/dL (0.2-1.0) Aspartate Amino Transf (AST/SGOT) 17 U/L (15-37) Alanine Aminotransferase (ALT/SGPT) 14 U/L (14-59) Alkaline Phosphatase 89 U/L (46-116) Troponin I Quantitative < 0.017 ng/mL (0.000-0.055) Total Protein 6.6 g/dL (6.4-8.2) Albumin 3.4 g/dL (3.4-5.0) Albumin/Globulin Ratio 1.1 (1.0-1.7) Lipase 53 U/L (73-393) Laboratory Tests Test 08/02/19 08:15 White Blood Count 8.7 x10^3/uL (4.0-11.0) Red Blood Count 3.34 x10^6/uL (3.50-5.40) Hemoglobin 11.5 g/dL (12.0-15.5) Hematocrit 34.2 % (36.0-47.0) Mean Corpuscular Volume 102 fL (79-100) Mean Corpuscular Hemoglobin 34 pg (25-35) Mean Corpuscular Hemoglobin Concent 34 g/dL (31-37) Red Cell Distribution Width 17.8 % (11.5-14.5) Platelet Count 263 x10^3/uL (140-400) Neutrophils (%) (Auto) 69 % (31-73) Lymphocytes (%) (Auto) 20 % (24-48) Monocytes (%) (Auto) 8 % (0-9) Eosinophils (%) (Auto) 3 % (0-3) Basophils (%) (Auto) 1 % (0-3) Neutrophils # (Auto) 5.9 x10^3/uL (1.8-7.7) Lymphocytes # (Auto) 1.7 x10^3/uL (1.0-4.8) Monocytes # (Auto) 0.7 x10^3/uL (0.0-1.1) Eosinophils # (Auto) 0.2 x10^3/uL (0.0-0.7) Basophils # (Auto) 0.1 x10^3/uL (0.0-0.2) D-Dimer (Cathryn) 1.50 ug/mlFEU (0.00-0.50) Sodium Level 144 mmol/L (136-145) Potassium Level 4.0 mmol/L (3.5-5.1) Chloride Level 108 mmol/L (98-107) Carbon Dioxide Level 30 mmol/L (21-32) Anion Gap 6 (6-14) Blood Urea Nitrogen 29 mg/dL (7-20) Creatinine 1.0 mg/dL (0.6-1.0) Estimated GFR (Cockcroft-Gault) 52.3 BUN/Creatinine Ratio 29 (6-20) Glucose Level 121 mg/dL (70-99) Calcium Level 8.6 mg/dL (8.5-10.1) Total Bilirubin 0.3 mg/dL (0.2-1.0) Aspartate Amino Transf (AST/SGOT) 17 U/L (15-37) Alanine Aminotransferase (ALT/SGPT) 14 U/L (14-59) Alkaline Phosphatase 89 U/L (46-116) Troponin I Quantitative < 0.017 ng/mL (0.000-0.055) Total Protein 6.6 g/dL (6.4-8.2) Albumin 3.4 g/dL (3.4-5.0) Albumin/Globulin Ratio 1.1 (1.0-1.7) Lipase 53 U/L (73-393) Images Images CTPA - Chest: No pulmonary embolism. No aortic dissection or aneurysm. Extensive atheromatous calcification throughout the aorta and branch vessels. No pathologic axillary, mediastinal or hilar adenopathy. No focal consolidation. Bilateral lower lobe subsegmental atelectasis. Respiratory motion degrades evaluation of the lung bases. No pleural effusion. Small hiatal hernia. Upper abdomen: The imaged upper abdomen is unremarkable. Bones: Bilateral shoulder arthroplasty produce significant beam hardening artifact degrading evaluation of the upper chest. Chronic T6 and L1 compression fracture with vertebroplasty material. Impression: 1. No acute intrathoracic pathology. No pulmonary embolism. 2. Bilateral lower lobe subsegmental atelectasis. ECHO 2018 - The left ventricular systolic function is normal and the ejection fraction is within normal range. The Ejection Fraction is 70%. There is mild concentric left ventricular hypertrophy. Transmitral Doppler flow pattern is Grade III-reversible restrictive diastolic dysfunction. The right ventricle is dilated. The left atrium size is normal. The right atrium size is mildly dilated. The aortic valve is trileaflet. The aortic valve is moderately calcified. Doppler and Color Flow revealed mild aortic regurgitation. There is mild to moderate valvular aortic stenosis. Calculated aortic valve area is 0.93 cm2 with maximum pressure gradient of 28 mmHg and mean pressure gradient of 16 mmHg. Doppler and Color-flow revealed moderate mitral regurgitation. Doppler and Color Flow revealed trace to mild tricuspid regurgitation. The PA pressure was estimated at 25 mmHg. Pulmonic valve not well visualized. There is no evidence of significant pericardial effusion. VTE Prophylaxis Ordered VTE Prophylaxis Devices: No VTE Pharmacological Prophylaxi: Yes Assessment/Plan Assessment/Plan A/P: Chest pain - given the severity of her aortic calcifications and h/o NSTEMI, family history, will treat for unstable angina with NTG, ASA, consult cardiology, trend troponins. Echocardiogram Aortic stenosis - historic, has not had f/u. will obtain echo Peripheral neuropathy - s/p 7 spine surgeries. Has not had vascular w/u of her lower extremity pain and weakness, will obtain arterial dopplers HTN - cont home medications FEN -Cardiac diet PPX - lovenox DNR/DNI Dispo - inpatient for chest pain, leg weakness BRUCE RANGEL MD Aug 02, 2019 13:31
--- NOTE | 2019-08-02 13:57 | EKG ---
[facility] [address] [place] [address] Test Date: 2019-08-02 Test Time: 07:55:56 Pat Name: LAURA RICHMOND Department: Room: [facility] Gender: F Sde: : 1930 Requested By: BRUCE RANGEL Order Number: [id number] Reading MD: Measurements Intervals [place] Rate: 89 P: 51 CT: 144 QRS: -8 QRSD: 76 T: 5 QT: 344 QTc: 425 Interpretive Statements SINUS RHYTHM LEFTWARD AXIS QRS(T) CONTOUR ABNORMALITY CONSIDER ANTEROLATERAL MYOCARDIAL DAMAGE POSSIBLY ABNORMAL ECG RI6.01 No previous ECG available for comparison
[2019-08-02 15:15] VITALS: BP 159/51
[2019-08-02] MEDS ORDERED: IV NORMAL SALINE 1000ML BAG 1,000 ML IV ONE (17:00)
[2019-08-02] MEDS ORDERED: ONDANSETRON PF 4 MG/2 ML VIAL. IVP PRN (17:00)
[2019-08-02] MEDS ORDERED: traMADol 50 MG TABLET PO PRN (17:00)
[2019-08-02] MEDS ORDERED: MORPHINE SULFATE 2 MG/ML VIAL. IV PRN (17:15)
[2019-08-02] MEDS: POLYVINYL ALCOHOL 1.4% OPHTH SOLUTION 15ML BOTTLE. OU SCH ×2 (17:30→21:00)
[2019-08-02] MEDS: GABAPENTIN 100 MG CAPSULE. PO SCH ×2 (17:30→22:00)
[2019-08-02 19:36] VITALS: BP 134/57
[2019-08-02] MEDS ORDERED: LATANOPROST 0.005% OPHTH SOLUTION 2.5ML BOTTLE. OU SCH (21:00)
[2019-08-02] MEDS: OXYBUTYNIN CHLORIDE 5 MG TABLET PO SCH (21:00)
--- NOTE | 2019-08-02 21:46 | RAD ---
EXAM: Bilateral lower extremity arterial Doppler. HISTORY: Bilateral lower extremity claudication. COMPARISON: None. FINDINGS: Grayscale and Doppler analysis of the lower extremity arterial systems was performed bilaterally. On the right, waveforms are triphasic through the midportion of the superficial femoral artery. They become biphasic in the distal portion and remain biphasic through the popliteal artery. They are also biphasic within the anterior tibial and distal posterior tibial arteries. They are monophasic in the dorsalis pedis artery. The peroneal artery is not visualized. On the left, there are triphasic waveforms through the superficial femoral artery. They become biphasic within the popliteal artery then become monophasic within the trifurcation vessels. There is monophasic flow within the dorsalis pedis artery. IMPRESSION: 1. On the right, stenosis is mildly flow-limiting within the proximal trifurcation vessels and becomes significantly flow-limiting distally. 2. On the left, flow is mildly flow-limiting within the popliteal artery, and becomes significantly flow-limiting within the trifurcation vessels. Electronically signed by: Noemí Acosta MD (08/02/2019 9:42 PM) [facility]
[2019-08-02 23:14] VITALS: BP 104/32
[2019-08-03 03:28] VITALS: BP 109/42
[2019-08-03 05:55] LABS: BASO % 1 % (0-3); EOS # 0.4 x10^3/uL (0.0-0.7); EOS % 6 % (0-3); HEMATOCRIT 32.9 % (36.0-47.0); HEMOGLOBIN 10.9 g/dL (12.0-15.5); LYMPH # 2.1 x10^3/uL (1.0-4.8); LYMPH % 30 % (24-48); MEAN CORPUSCULAR HEMOGLOBIN 34 pg (25-35); MEAN CORPUSCULAR HGB CONC 33 g/dL (31-37); MEAN CORPUSCULAR VOLUME 103 fL (79-100); MONO # 0.7 x10^3/uL (0.0-1.1); MONO % 10 % (0-9); NEUT # 3.6 x10^3/uL (1.8-7.7); NEUT % 53 % (31-73); PLATELET COUNT 254 x10^3/uL (140-400); RED BLOOD COUNT 3.19 x10^6/uL (3.50-5.40); WHITE BLOOD COUNT 6.9 x10^3/uL (4.0-11.0)
[2019-08-03 06:04] LABS: CALCIUM 9.1 mg/dL (8.5-10.1); GFR 52.3; POTASSIUM 3.8 mmol/L (3.5-5.1)
[2019-08-03 07:15] VITALS: BP 127/54
--- NOTE | 2019-08-03 10:29 | CARD ---
MR#: [id number] Date of Study: 08/03/2019 Ordering Physician: BRUCE RANGEL, Referring Physician: BRUCE RANGEL, Tech: Neda Duffy APPROVED REPORT EXAM: Two-dimensional and M-mode echocardiogram with Doppler and color Doppler. Other Information Quality : AverageHR: 62bpm INDICATION Chest Pain HX of Aortic Stenosis 2D DIMENSIONS RVDd2.7 (2.9-3.5cm)Left Atrium(2D)3.8 (1.6-4.0cm) IVSd1.4 (0.7-1.1cm)Aortic Root(2D)2.0 (2.0-3.7cm) LVDd4.3 (3.9-5.9cm)LVOT Diameter1.9 (1.8-2.4cm) PWd1.1 (0.7-1.1cm)LVDs2.4 (2.5-4.0cm) FS (%) 44.5 %SV63.0 ml LVEF(%)76.1 (>50%) Aortic Valve AoV Peak Lior.391.9cm/sAoV VTI95.9cm AO Peak GR.61.4mmHgLVOT Peak Lior.113.2cm/s AO Mean GR.39mmHgAVA (VMAX)0.81cm2 Mitral Valve MV E Kgosexru10.2cm/sMV E Peak Gr.13mmHg MV DECEL [id number] A Xclhffjs031.3cm/s MV E Mean Gr.4mmHgE/A Ratio0.6 Pulmonary Valve PV Peak Bakouohz76.6cm/s Tricuspid Valve TR P. Wwugtksb065lg/sTR Peak Gr.24mmHg Pulmonary Vein S1 Wyghfkaz78.8cm/sD2 Sacouzfl77.1cm/s LEFT VENTRICLE The left ventricle is normal size. There is mild concentric left ventricular hypertrophy. The left ve ntricular systolic function is normal. The Ejection Fraction is 60-65%. There is normal LV segmental wall motion. Transmitral Doppler flow pattern is Grade I-abnormal relaxation pattern. RIGHT VENTRICLE The right ventricle is normal size. There is normal right ventricular wall thickness. The right ventr icular systolic function is normal. ATRIA The left atrium is mildly dilated. The right atrium is mildly dilated. The interatrial septum is inta ct with no evidence for an atrial septal defect or patent foramen ovale as noted on 2-D or Doppler im aging. AORTIC VALVE The aortic valve is moderately to severely calcified. Doppler and Color Flow revealed mild aortic reg urgitation. There is moderate valvular aortic stenosis. MITRAL VALVE The mitral valve is thickened but opens well. Mitral annular calcification is moderate. There is no e vidence of mitral valve prolapse. There is no mitral valve stenosis. Doppler and Color-flow revealed mild mitral regurgitation. TRICUSPID VALVE The tricuspid valve is normal in structure and function. Doppler and Color Flow revealed mild tricusp id regurgitation. There is no tricuspid valve stenosis. PULMONIC VALVE The pulmonic valve is not well visualized. Doppler and Color Flow revealed no pulmonic valvular regur gitation. GREAT VESSELS The aortic root is normal in size. The ascending aorta is normal in size. The IVC is normal in size a nd collapses >50% with inspiration. PERICARDIAL EFFUSION There is no pleural effusion. There is no evidence of significant pericardial effusion. Critical Notification Critical Value: No <Conclusion> The left ventricular systolic function is normal. The Ejection Fraction is 60-65%. There is normal LV segmental wall motion. Transmitral Doppler flow pattern is Grade I-abnormal relaxation pattern. Moderate valvular aortic stenosis. Mild aortic regurgitation. Mild mitral regurgitation. There is no evidence of significant pericardial effusion. Signed by : Enzo Javed, Electronically Approved : 08/03/2019 10:29:02
[2019-08-03 10:54] VITALS: BP 126/50
--- NOTE | 2019-08-03 11:02 | PDOC ---
PROGRESS NOTES History of Present Illness History of Present Illness VTE Prophylaxis Ordered VTE Prophylaxis Devices: No VTE Pharmacological Prophylaxi: Yes Assessment/Plan Assessment/Plan A/P: Chest pain - given the severity of her aortic calcifications and h/o NSTEMI, family history, will treat for unstable angina with NTG, ASA, consult cardiology, trend troponins. Echocardiogram Aortic stenosis - historic, has not had f/u. Moderate valvular aortic stenosis.on echo Peripheral neuropathy - s/p 7 spine surgeries. Has not had vascular w/u of her lower extremity pain and weakness, will obtain arterial dopplers PVD DOPPLER , On the left, there are triphasic waveforms through the superficial femoral artery. They become biphasic within the popliteal artery then become monophasic within the trifurcation vessels. There is monophasic flow within the dorsalis pedis artery. HTN - cont home medications FEN -Cardiac diet PPX - lovenox DNR/DNI Dispo - inpatient for chest pain, leg weakness VASCULAR SURGERY CONSULT cardiac cath 08-04 IS 37 MIN PT EXAM, CHART REVIEW, > 50% OF TIME SPENT WITH EXAM, CHART REVIEW, PT CARE COORDINATION Vitals Vitals Vital Signs Date Time Temp Pulse Resp B/P (MAP) Pulse Ox O2 Delivery O2 Flow Rate FiO2 08/03/19 10:54 98.0 73 18 126/50 (75) 97 Room Air 98.0 Physical Exam General: Alert, Oriented X3, Cooperative, No acute distress Lungs: Clear, Wheezing Abdomen: Normal bowel sounds, Soft, No tenderness, No hepatosplenomegaly, No masses Extremities: No clubbing, No cyanosis, No edema, No tenderness/swelling, Other (Decreased pulses in bilateral DP and PT) Skin: No rashes, No breakdown, No significant lesion Labs LABS CT ANGIOGRAPHY CHEST History: Chest pain. Elevated d-dimer. Technique: CT of the chest was performed with contrast. PE protocol. Maximum intensity projection coronal and sagittal reconstructions were performed. Exposure: One or more of the following individualized dose reduction techniques were utilized for this examination: 1. Automated exposure control 2. Adjustment of the mA and/or kV according to patient size 3. Use of iterative reconstruction technique. Comparison: None Findings: Chest: No pulmonary embolism. No aortic dissection or aneurysm. Extensive atheromatous calcification throughout the aorta and branch vessels. No pathologic axillary, mediastinal or hilar adenopathy. No focal consolidation. Bilateral lower lobe subsegmental atelectasis. Respiratory motion degrades evaluation of the lung bases. No pleural effusion. Small hiatal hernia. Upper abdomen: The imaged upper abdomen is unremarkable. Bones: Bilateral shoulder arthroplasty produce significant beam hardening artifact degrading evaluation of the upper chest. Chronic T6 and L1 compression fracture with vertebroplasty material. Impression: 1. No acute intrathoracic pathology. No pulmonary embolism. 2. Bilateral lower lobe subsegmental atelectasis. Electronically signed by: Justin Skinner DO (08/02/2019 12:19 PM) [facility] DICTATED and SIGNED BY: JUSTIN SKINNER DO EXAM: Bilateral lower extremity arterial Doppler. HISTORY: Bilateral lower extremity claudication. COMPARISON: None. FINDINGS: Grayscale and Doppler analysis of the lower extremity arterial systems was performed bilaterally. On the right, waveforms are triphasic through the midportion of the superficial femoral artery. They become biphasic in the distal portion and remain biphasic through the popliteal artery. They are also biphasic within the anterior tibial and distal posterior tibial arteries. They are monophasic in the dorsalis pedis artery. The peroneal artery is not visualized. On the left, there are triphasic waveforms through the superficial femoral artery. They become biphasic within the popliteal artery then become monophasic within the trifurcation vessels. There is monophasic flow within the dorsalis pedis artery. IMPRESSION: 1. On the right, stenosis is mildly flow-limiting within the proximal trifurcation vessels and becomes significantly flow-limiting distally. 2. On the left, flow is mildly flow-limiting within the popliteal artery, and becomes significantly flow-limiting within the trifurcation vessels. Electronically signed by: Noemí Acosta MD (08/02/2019 9:42 PM) [facility] Pulmonary Valve PV Peak Velocity 98.6cm/s Tricuspid Valve TR P. Velocity 247cm/s TR Peak Gr. 24mmHg Pulmonary Vein S1 Velocity 72.8cm/s D2 Velocity 30.1cm/s LEFT VENTRICLE The left ventricle is normal size. There is mild concentric left ventricular hypertrophy. The left ventricular systolic function is normal. The Ejection Fraction is 60-65%. There is normal LV segmental wall motion. Transmitral Doppler flow pattern is Grade I-abnormal relaxation pattern. RIGHT VENTRICLE The right ventricle is normal size. There is normal right ventricular wall thickness. The right ventricular systolic function is normal. ATRIA The left atrium is mildly dilated. The right atrium is mildly dilated. The interatrial septum is intact with no evidence for an atrial septal defect or patent foramen ovale as noted on 2-D or Doppler imaging. AORTIC VALVE The aortic valve is moderately to severely calcified. Doppler and Color Flow re vealed mild aortic regurgitation. There is moderate valvular aortic stenosis. MITRAL VALVE The mitral valve is thickened but opens well. Mitral annular calcification is moderate. There is no evidence of mitral valve prolapse. There is no mitral valve stenosis. Doppler and Color-flow revealed mild mitral regurgitation. TRICUSPID VALVE The tricuspid valve is normal in structure and function. Doppler and Color Flow revealed mild tricuspid regurgitation. There is no tricuspid valve stenosis. PULMONIC VALVE The pulmonic valve is not well visualized. Doppler and Color Flow revealed no pulmonic valvular regurgitation. GREAT VESSELS The aortic root is normal in size. The ascending aorta is normal in size. The IVC is normal in size and collapses >50% with inspiration. PERICARDIAL EFFUSION There is no pleural effusion. There is no evidence of significant pericardial effusion. Critical Notification Critical Value: No <Conclusion> The left ventricular systolic function is normal. The Ejection Fraction is 60-65%. There is normal LV segmental wall motion. Transmitral Doppler flow pattern is Grade I-abnormal relaxation pattern. Moderate valvular aortic stenosis. Mild aortic regurgitation. Mild mitral regurgitation. There is no evidence of significant pericardial effusion. Signed by : Shea Tellez, Electronically Approved : 08/03/2019 10:29:02 DICTATED and SIGNED BY: SHEA TELLEZ MD DATE: 08/03/19 0946 Laboratory Tests Test 08/02/19 18:00 08/03/19 03:26 Troponin I Quantitative < 0.017 ng/mL (0.000-0.055) < 0.017 ng/mL (0.000-0.055) White Blood Count 6.9 x10^3/uL (4.0-11.0) Red Blood Count 3.19 x10^6/uL (3.50-5.40) Hemoglobin 10.9 g/dL (12.0-15.5) Hematocrit 32.9 % (36.0-47.0) Mean Corpuscular Volume 103 fL (79-100) Mean Corpuscular Hemoglobin 34 pg (25-35) Mean Corpuscular Hemoglobin Concent 33 g/dL (31-37) Red Cell Distribution Width 18.0 % (11.5-14.5) Platelet Count 254 x10^3/uL (140-400) Neutrophils (%) (Auto) 53 % (31-73) Lymphocytes (%) (Auto) 30 % (24-48) Monocytes (%) (Auto) 10 % (0-9) Eosinophils (%) (Auto) 6 % (0-3) Basophils (%) (Auto) 1 % (0-3) Neutrophils # (Auto) 3.6 x10^3/uL (1.8-7.7) Lymphocytes # (Auto) 2.1 x10^3/uL (1.0-4.8) Monocytes # (Auto) 0.7 x10^3/uL (0.0-1.1) Eosinophils # (Auto) 0.4 x10^3/uL (0.0-0.7) Basophils # (Auto) 0.0 x10^3/uL (0.0-0.2) Sodium Level 148 mmol/L (136-145) Potassium Level 3.8 mmol/L (3.5-5.1) Chloride Level 111 mmol/L (98-107) Carbon Dioxide Level 28 mmol/L (21-32) Anion Gap 9 (6-14) Blood Urea Nitrogen 26 mg/dL (7-20) Creatinine 1.0 mg/dL (0.6-1.0) Estimated GFR (Cockcroft-Gault) 52.3 Glucose Level 84 mg/dL (70-99) Calcium Level 9.1 mg/dL (8.5-10.1) Assessment and Plan Assessmemt and Plan Problems Medical Problems: (1) Chest pain Status: Acute Comment Review of Relevant I have reviewed the following items thuy (where applicable) has been applied. Labs Laboratory Tests Test 08/02/19 08:15 08/02/19 18:00 08/03/19 03:26 White Blood Count 8.7 x10^3/uL (4.0-11.0) 6.9 x10^3/uL (4.0-11.0) Red Blood Count 3.34 x10^6/uL (3.50-5.40) 3.19 x10^6/uL (3.50-5.40) Hemoglobin 11.5 g/dL (12.0-15.5) 10.9 g/dL (12.0-15.5) Hematocrit 34.2 % (36.0-47.0) 32.9 % (36.0-47.0) Mean Corpuscular Volume 102 fL (79-100) 103 fL (79-100) Mean Corpuscular Hemoglobin 34 pg (25-35) 34 pg (25-35) Mean Corpuscular Hemoglobin Concent 34 g/dL (31-37) 33 g/dL (31-37) Red Cell Distribution Width 17.8 % (11.5-14.5) 18.0 % (11.5-14.5) Platelet Count 263 x10^3/uL (140-400) 254 x10^3/uL (140-400) Neutrophils (%) (Auto) 69 % (31-73) 53 % (31-73) Lymphocytes (%) (Auto) 20 % (24-48) 30 % (24-48) Monocytes (%) (Auto) 8 % (0-9) 10 % (0-9) Eosinophils (%) (Auto) 3 % (0-3) 6 % (0-3) Basophils (%) (Auto) 1 % (0-3) 1 % (0-3) Neutrophils # (Auto) 5.9 x10^3/uL (1.8-7.7) 3.6 x10^3/uL (1.8-7.7) Lymphocytes # (Auto) 1.7 x10^3/uL (1.0-4.8) 2.1 x10^3/uL (1.0-4.8) Monocytes # (Auto) 0.7 x10^3/uL (0.0-1.1) 0.7 x10^3/uL (0.0-1.1) Eosinophils # (Auto) 0.2 x10^3/uL (0.0-0.7) 0.4 x10^3/uL (0.0-0.7) Basophils # (Auto) 0.1 x10^3/uL (0.0-0.2) 0.0 x10^3/uL (0.0-0.2) D-Dimer (Cathryn) 1.50 ug/mlFEU (0.00-0.50) Sodium Level 144 mmol/L (136-145) 148 mmol/L (136-145) Potassium Level 4.0 mmol/L (3.5-5.1) 3.8 mmol/L (3.5-5.1) Chloride Level 108 mmol/L (98-107) 111 mmol/L (98-107) Carbon Dioxide Level 30 mmol/L (21-32) 28 mmol/L (21-32) Anion Gap 6 (6-14) 9 (6-14) Blood Urea Nitrogen 29 mg/dL (7-20) 26 mg/dL (7-20) Creatinine 1.0 mg/dL (0.6-1.0) 1.0 mg/dL (0.6-1.0) Estimated GFR (Cockcroft-Gault) 52.3 52.3 BUN/Creatinine Ratio 29 (6-20) Glucose Level 121 mg/dL (70-99) 84 mg/dL (70-99) Calcium Level 8.6 mg/dL (8.5-10.1) 9.1 mg/dL (8.5-10.1) Total Bilirubin 0.3 mg/dL (0.2-1.0) Aspartate Amino Transf (AST/SGOT) 17 U/L (15-37) Alanine Aminotransferase (ALT/SGPT) 14 U/L (14-59) Alkaline Phosphatase 89 U/L (46-116) Troponin I Quantitative < 0.017 ng/mL (0.000-0.055) < 0.017 ng/mL (0.000-0.055) < 0.017 ng/mL (0.000-0.055) Total Protein 6.6 g/dL (6.4-8.2) Albumin 3.4 g/dL (3.4-5.0) Albumin/Globulin Ratio 1.1 (1.0-1.7) Lipase 53 U/L (73-393) Laboratory Tests Test 08/02/19 18:00 08/03/19 03:26 Troponin I Quantitative < 0.017 ng/mL (0.000-0.055) < 0.017 ng/mL (0.000-0.055) White Blood Count 6.9 x10^3/uL (4.0-11.0) Red Blood Count 3.19 x10^6/uL (3.50-5.40) Hemoglobin 10.9 g/dL (12.0-15.5) Hematocrit 32.9 % (36.0-47.0) Mean Corpuscular Volume 103 fL (79-100) Mean Corpuscular Hemoglobin 34 pg (25-35) Mean Corpuscular Hemoglobin Concent 33 g/dL (31-37) Red Cell Distribution Width 18.0 % (11.5-14.5) Platelet Count 254 x10^3/uL (140-400) Neutrophils (%) (Auto) 53 % (31-73) Lymphocytes (%) (Auto) 30 % (24-48) Monocytes (%) (Auto) 10 % (0-9) Eosinophils (%) (Auto) 6 % (0-3) Basophils (%) (Auto) 1 % (0-3) Neutrophils # (Auto) 3.6 x10^3/uL (1.8-7.7) Lymphocytes # (Auto) 2.1 x10^3/uL (1.0-4.8) Monocytes # (Auto) 0.7 x10^3/uL (0.0-1.1) Eosinophils # (Auto) 0.4 x10^3/uL (0.0-0.7) Basophils # (Auto) 0.0 x10^3/uL (0.0-0.2) Sodium Level 148 mmol/L (136-145) Potassium Level 3.8 mmol/L (3.5-5.1) Chloride Level 111 mmol/L (98-107) Carbon Dioxide Level 28 mmol/L (21-32) Anion Gap 9 (6-14) Blood Urea Nitrogen 26 mg/dL (7-20) Creatinine 1.0 mg/dL (0.6-1.0) Estimated GFR (Cockcroft-Gault) 52.3 Glucose Level 84 mg/dL (70-99) Calcium Level 9.1 mg/dL (8.5-10.1) Medications Current Medications Nitroglycerin (Nitrostat) 0.4 mg PRN Q5MIN PRN SL CHEST PAIN Last administered on 08/02/19at 08:26; Start 08/02/19 at 08:15; Stop 08/02/19 at 09:32; Status DC Aspirin (Children'S Aspirin) 324 mg 1X ONCE PO Last administered on 08/02/19at 08:26; Start 08/02/19 at 08:15; Stop 08/02/19 at 08:16; Status DC Famotidine (Pepcid Vial) 20 mg 1X ONCE IVP Last administered on 08/02/19at 09:44; Start 08/02/19 at 09:45; Stop 08/02/19 at 09:46; Status DC Nitroglycerin (Nitrostat) 0.4 mg PRN Q5MIN PRN SL CHEST PAIN; Start 08/02/19 at 09:30 Iohexol (Omnipaque 350 Mg/ml) 75 ml 1X ONCE IV Last administered on 08/02/19at 11:19; Start 08/02/19 at 10:30; Stop 08/02/19 at 10:35; Status DC Info (CONTRAST GIVEN -- Rx MONITORING) 1 each PRN DAILY PRN MC SEE COMMENTS; Start 08/02/19 at 10:45; Stop 08/04/19 at 10:44 Fentanyl Citrate (Fentanyl 2ml Vial) 50 mcg 1X ONCE IVP ; Start 08/02/19 at 11:45; Stop 08/02/19 at 11:46; Status DC Ondansetron HCl (Zofran) 4 mg 1X ONCE IVP ; Start 08/02/19 at 11:45; Stop 08/02/19 at 11:46; Status DC Ondansetron HCl (Zofran) 4 mg PRN Q6HRS PRN IVP NAUSEA/VOMITING; Start 08/02/19 at 17:00 Aspirin (Children'S Aspirin) 81 mg DAILYWBKFT PO ; Start 08/03/19 at 08:00 Gabapentin (Neurontin) 100 mg TID PO ; Start 08/02/19 at 17:30 Latanoprost (Xalatan) 1 drop QHS OU ; Start 08/02/19 at 21:00; Stop 08/03/19 at 05:58; Status DC Tramadol HCl (Ultram) 50 mg PRN DAILY PRN PO PAIN; Start 08/02/19 at 17:00 Oxybutynin Chloride (Ditropan) 5 mg BID PO ; Start 08/02/19 at 21:00 Artificial Tears (Artificial Tears) 1 drop QID OU ; Start 08/02/19 at 17:30 Sodium Chloride 1,000 ml @ 100 mls/hr 1X ONCE IV Last administered on at 17:30; Start 08/02/19 at 17:00; Stop 08/03/19 at 02:59; Status DC Morphine Sulfate (Morphine Sulfate) 2 mg PRN Q2HR PRN IV PAIN; Start 08/02/19 at 17:15 Latanoprost (Xalatan) 1 drop DAILY OU ; Start 08/03/19 at 09:00 Active Scripts Active Cipro (Ciprofloxacin Hcl) 250 Mg Tablet 500 Mg PO BID 7 Days Reported Systane 0.3-0.4% Eye Drops (Propylene Glycol/Peg 400) 15 Ml Drops 1 Drop EACHEYE QID Gabapentin 300 Mg Capsule 300 Mg PO TID Tramadol Hcl 50 Mg Tablet 50 Mg PO DAILY PRN Naproxen Sodium 550 Mg Tablet 2 Tab PO DAILY Latanoprost 2.5 Ml Drops 1 Drop OP DAILY Oxybutynin Chloride Er (Oxybutynin Chloride) 10 Mg Tab.er.24 10 Mg PO DAILY Aspir-Low (Aspirin) 81 Mg Tablet.dr 1 Tab PO DAILY Vitals/I & O Vital Sign - Last 24 Hours 08/02/19 08/02/19 08/02/19 08/02/19 11:22 12:22 12:38 12:51 Temp 98.7 98.7 Pulse 68 64 69 Resp 16 16 18 B/P (MAP) 150/67 (94) 141/63 (89) 142/58 (86) Pulse Ox 98 98 95 O2 Delivery Room Air Room Air Room Air 08/02/19 08/02/19 08/02/19 08/03/19 15:15 19:36 23:14 03:28 Temp 97.3 97.9 97.6 97.9 97.3 97.9 97.6 97.9 Pulse 71 80 76 62 Resp 18 16 16 18 B/P (MAP) 159/51 (87) 134/57 (82) 104/32 (56) 109/42 (64) Pulse Ox 96 92 92 96 O2 Delivery Room Air Room Air Room Air Room Air 08/03/19 08/03/19 07:15 10:54 Temp 98.4 98.0 98.4 98.0 Pulse 72 73 Resp 20 18 B/P (MAP) 127/54 (78) 126/50 (75) Pulse Ox 96 97 O2 Delivery Room Air Room Air Intake and Output 08/02/19 08/02/19 08/03/19 15:00 23:00 07:00 Intake Total 360 ml 0 ml Balance 360 ml 0 ml BREANA BARBOZA MD Aug 03, 2019 11:02
[2019-08-03 11:04] LABS: CHOLESTEROL/HDL RATIO 2.9
--- NOTE | 2019-08-03 11:13 | PDOC2 ---
CARDIAC CONSULT DATE OF CONSULT Date of Consult DATE: 08/03/19 TIME: 10:35 REASON FOR CONSULT Reason for Consult: Chest pain improved with NTG REFERRING PHYSICIAN Referring Physician: Finn SOURCE Source: Chart review, Patient HISTORY OF PRESENT ILLNESS HISTORY OF PRESENT ILLNESS This is a pleasant 88 yo functional female admitted for complains of chest pressure. This is mainly left sided and associated with SOA. This started happening about 3 days ago and actually intermittent and finally got better in ED with NTG. No n/v and no palpitations. No recent falls or injury. No meds for HLP but does take ASA daily. Presently CP free and no SOA. No past ischemic workup. No known GI bleed, CVA, CAD. PAST MEDICAL HISTORY Past Medical History Cardiovascular: , valvular insufficiency Pulmonary: No pertinent hx CENTRAL NERVOUS SYSTEM: Other (none) GI: No pertinent hx Heme/Onc: No pertinent hx Hepatobiliary: No pertinent hx Psych: No pertinent hx Musculoskeletal: Osteoarthritis Rheumatologic: No pertinent hx Infectious disease: No pertinent hx ENT: No pertinent hx Renal/: Chronic renal insuff, urinary incontinence Endocrine: No pertinent hx Dermatology: No pertinent hx PAST SURGICAL HISTORY Past Surgical History bilateral shoulder arthroplasty, kyphoplasty, TKA, LMD, cataract removal FAMILY HISTORY Family History: Heart Disease (father) SOCIAL HISTORY Smoke: No ALCOHOL: none Drugs: None Lives: with Family CURRENT MEDICATIONS CURRENT MEDICATIONS Current Medications Medications (Trade) Dose Ordered Sig/Carey Route PRN Reason Start Time Stop Time Status Last Admin Dose Admin Sodium Chloride 1,000 ml @ 100 mls/hr 1X ONCE IV 08/02/19 17:00 08/03/19 02:59 DC 08/02/19 17:30 ALLERGIES ALLERGIES: Coded Allergies: No Known Medication Allergies (Verified Allergy, Unknown, 03/14/18) Iodinated Contrast Media (Verified Adverse Reaction, Intermediate, Diarrhea, 03/14/18) ROS Review of System 14 point ROS evaluated with pertinent positives noted per HPI PHYSICAL EXAM General: Alert, Oriented X3, Cooperative, No acute distress HEENT: Atraumatic, Mucous membr. moist/pink Lungs: Clear to auscultation, Normal air movement Heart: Regular rate (SR), Normal S1, Normal S2, Other (S4; 4/6 diffuse systolic murmur crescendo-decrescendo) Abdomen: Soft, No tenderness Extremities: No cyanosis, No edema Skin: No breakdown, No significant lesion Neuro: Normal speech, Sensation intact Psych/Mental Status: Mental status NL, Mood NL MUSCULOSKELETAL: Osteoarthritic changes both hands VITALS/I&O VITALS/I&O: Vital Signs Date Time Temp Pulse Resp B/P (MAP) Pulse Ox O2 Delivery O2 Flow Rate FiO2 08/03/19 07:15 98.4 72 20 127/54 (78) 96 Room Air 98.4 I & O 08/02/19 08/02/19 08/03/19 15:00 23:00 07:00 Intake Total 360 ml 0 ml Balance 360 ml 0 ml LABS Lab: Laboratory Tests Test 08/02/19 18:00 08/03/19 03:26 Troponin I Quantitative < 0.017 ng/mL (0.000-0.055) < 0.017 ng/mL (0.000-0.055) White Blood Count 6.9 x10^3/uL (4.0-11.0) Red Blood Count 3.19 x10^6/uL (3.50-5.40) L Hemoglobin 10.9 g/dL (12.0-15.5) L Hematocrit 32.9 % (36.0-47.0) L Mean Corpuscular Volume 103 fL (79-100) H Mean Corpuscular Hemoglobin 34 pg (25-35) Mean Corpuscular Hemoglobin Concent 33 g/dL (31-37) Red Cell Distribution Width 18.0 % (11.5-14.5) H Platelet Count 254 x10^3/uL (140-400) Neutrophils (%) (Auto) 53 % (31-73) Lymphocytes (%) (Auto) 30 % (24-48) Monocytes (%) (Auto) 10 % (0-9) H Eosinophils (%) (Auto) 6 % (0-3) H Basophils (%) (Auto) 1 % (0-3) Neutrophils # (Auto) 3.6 x10^3/uL (1.8-7.7) Lymphocytes # (Auto) 2.1 x10^3/uL (1.0-4.8) Monocytes # (Auto) 0.7 x10^3/uL (0.0-1.1) Eosinophils # (Auto) 0.4 x10^3/uL (0.0-0.7) Basophils # (Auto) 0.0 x10^3/uL (0.0-0.2) Sodium Level 148 mmol/L (136-145) H Potassium Level 3.8 mmol/L (3.5-5.1) Chloride Level 111 mmol/L (98-107) H Carbon Dioxide Level 28 mmol/L (21-32) Anion Gap 9 (6-14) Blood Urea Nitrogen 26 mg/dL (7-20) H Creatinine 1.0 mg/dL (0.6-1.0) Estimated GFR (Cockcroft-Gault) 52.3 Glucose Level 84 mg/dL (70-99) Calcium Level 9.1 mg/dL (8.5-10.1) Laboratory Tests 08/03/19 03:26 Laboratory Tests 08/03/19 03:26 ECHOCARDIOGRAM ECHOCARDIOGRAM <Conclusion> The left ventricular systolic function is normal. The Ejection Fraction is 60-65%. There is normal LV segmental wall motion. Transmitral Doppler flow pattern is Grade I-abnormal relaxation pattern. Moderate valvular aortic stenosis. Mild aortic regurgitation. Mild mitral regurgitation. There is no evidence of significant pericardial effusion. DATE: 08/03/19945 ASSESSMENT/PLAN ASSESSMENT/PLAN 1. Chest pain: UA features. Better with NTG. Presently CP free. Trops nml 2. Moderate : EF and WM nml 3. PAD: likely arterial claudication vs neuropathic. No wounds 4. Iodine contrast allergy: unknown reaction 5. HTN: controlled Recommendations 1. LHC tomorrow and possibly femoral runoff, risks and benefits discussed and agreeable to proceed. 2. Will provide contrast prep. 3. ASA. and will place on statin 4. Lipids, TSH ZENOBIA HOOKER APRN Aug 03, 2019 11:13
[2019-08-03] MEDS: POLYVINYL ALCOHOL 1.4% OPHTH SOLUTION 15ML BOTTLE. OU SCH ×4 (13:00→21:00)
[2019-08-03] MEDS: OXYBUTYNIN CHLORIDE 5 MG TABLET PO SCH ×2 (13:35→21:00)
[2019-08-03] MEDS: GABAPENTIN 100 MG CAPSULE. PO SCH ×3 (13:35→21:00)
[2019-08-03] MEDS: ASPIRIN CHEWABLE 81 MG TABLET. PO SCH (13:35)
[2019-08-03] MEDS: LATANOPROST 0.005% OPHTH SOLUTION 2.5ML BOTTLE. OU SCH (13:37)
--- NOTE | 2019-08-03 14:41 | NUR ---
SW following pt for dc planning. Chart reviewed and discussed with RN. Pt lives at home with friends. Cardiology following pt, possible heart cath tomorrow. Per RN, pt is stand by assist, uses w/c and walker at home. SW will be available as needed.
[2019-08-03 15:15] VITALS: BP 121/50
[2019-08-03] MEDS ORDERED: predniSONE 20 MG TABLET PO ONE (16:00)
[2019-08-03 19:50] VITALS: BP_SYST 115
[2019-08-03 23:43] VITALS: BP 126/50
[2019-08-04] VITALS (10 sets, daily range): BP systolic 111–153; BP diastolic 56–87
[2019-08-04] MEDS ORDERED: methylPREDNISolone SOD SUCC PF 125 MG/2 ML VIAL. IV PRN (06:00)
[2019-08-04] MEDS ORDERED: FAMOTIDINE 20 MG TABLET. PO PRN (06:00)
[2019-08-04] MEDS ORDERED: diphenhydrAMINE 50 MG/ML VIAL IV PRN (06:00)
[2019-08-04] MEDS: ASPIRIN CHEWABLE 81 MG TABLET. PO SCH (08:00)
[2019-08-04] MEDS: OXYBUTYNIN CHLORIDE 5 MG TABLET PO SCH (09:00)
[2019-08-04] MEDS: POLYVINYL ALCOHOL 1.4% OPHTH SOLUTION 15ML BOTTLE. OU SCH ×2 (09:00→13:00)
[2019-08-04] MEDS: LATANOPROST 0.005% OPHTH SOLUTION 2.5ML BOTTLE. OU SCH (09:00)
[2019-08-04] MEDS: GABAPENTIN 100 MG CAPSULE. PO SCH ×2 (09:00→14:00)
[2019-08-04 09:15] LABS: CALCIUM 8.8 mg/dL (8.5-10.1); CREATININE 0.9 mg/dL (0.6-1.0); GFR 59.1
[2019-08-04] MEDS ORDERED: LIDOCAINE 1% Multi-Dose 20 ML VIAL. ONE (09:21)
[2019-08-04] MEDS ORDERED: IOHEXOL 300 MG/ML 100ML VIAL. ONE ×2 (09:22→10:17)
[2019-08-04] MEDS ORDERED: methylPREDNISolone SOD SUCC PF 125 MG/2 ML VIAL. ONE (09:27)
[2019-08-04] MEDS ORDERED: fentaNYL PF VIAL 100 MCG/2 ML VIAL ONE (09:27)
[2019-08-04] MEDS ORDERED: FAMOTIDINE 20 MG/2 ML VIAL ONE (09:28)
[2019-08-04] MEDS ORDERED: MIDAZOLAM HCL/PF 2 MG/2 ML VIAL. ONE (09:28)
[2019-08-04] MEDS ORDERED: diphenhydrAMINE 50 MG/ML VIAL ONE (09:28)
[2019-08-04] MEDS ORDERED: HEPARIN for IV BOLUS 10,000 UNIT/10 ML VIAL. ONE (10:08)
--- NOTE | 2019-08-04 10:12 | NUR ---
SW following pt. SW received a phone call from VANDANA Beasley at [facility], phone: [phone], fax: [phone] who stated she was informed pt's admission from pt's counselor. 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 Pt has had increased decline with ADL's recently and the sisters/counselor believe she might benefit from SNU. SW discussed SW has not identified skilled needs so far but will request for PT/OT order to evaluate Skilled needs. Pt is scheduled for hearth cath today. Discussed with RN. Will continue to follow. Addendum: 08/04/19 at 1020 by VANESA DUNN Discussed with Physician.
[2019-08-04] MEDS ORDERED: MIDAZOLAM HCL/PF 2 MG/2 ML VIAL. IV ONE (10:15)
[2019-08-04] MEDS ORDERED: IOHEXOL 300 MG/ML 100ML VIAL. IART ONE (10:15)
[2019-08-04] MEDS ORDERED: HEPARIN for IV BOLUS 10,000 UNIT/10 ML VIAL. IV ONE (10:15)
[2019-08-04] MEDS ORDERED: FAMOTIDINE 20 MG/2 ML VIAL IVP ONE (10:15)
[2019-08-04] MEDS ORDERED: fentaNYL PF VIAL 100 MCG/2 ML VIAL IV ONE (10:15)
[2019-08-04] MEDS ORDERED: LIDOCAINE 1% Multi-Dose 20 ML VIAL. INJ ONE (10:15)
[2019-08-04] MEDS ORDERED: SIMV10TA15 PO (10:24)
--- NOTE | 2019-08-04 10:25 | SNU/HH DC ---
DISCHARGE WITH HOME HEALTH DISCHARGE INFORMATION: Discharge Date: Aug 04, 2019 Final Diagnosis: Problems Medical Problems: (1) Chest pain Status: Acute Condition on Discharge: Stable HOME HEALTH: Face to Face: I certify this patient is under my care and that I, or a nurse practitioner or physician's assistant hairstylist working with me, had a face to face encounter that meets the physician face to face encounter requirements with this patient on 08/04 Medical Complications: Other (cardiac) RN For Eval/Treatment: Yes Physical Therapy For: Evalulation/Treatment Occupational Therapy For: Evaluation/Treatment Pt Meets Homebound Status: Extreme weakness w/ amb. POST DISCHARGE ORDERS: Activity Instructions for Disc: Activity as tolerated, Avoid exertion Weight Bearing Status after Di: As tolerated Bathing Instructions: Shower-keep dressing dry DIET AFTER DISCHARGE: Regular CHECKS AFTER DISCHARGE: Checks after discharge: Check your Temp as needed TREATMENT/EQUIPMENT ORDERS: Adaptive Equipment Issued: None CERTIFICATION STATEMENT: Certification Statement: Certification Statement: Based on the above finding, I certify that this patient is confined to the home and needs intermittent shelter care, physical therapy and/or speech therapy, or continues to need occupational therapy.~ This patient is under my care, and I have initiated the establishment of the plan of care.~ This patient will be followed by myself or a community physician who will periodically review the plan of care. Home Meds Active Scripts Simvastatin (SIMVASTATIN) 10 Mg Tablet, 1 TAB PO QHS for cardiac risk, #30 TAB Prov:ABIMAEL HART MD 08/04/19 Ciprofloxacin Hcl (CIPRO) 250 Mg Tablet, 500 MG PO BID for 7 Days, #28 TAB Prov:EBONI FOWLER MD 03/15/18 Reported Medications Propylene Glycol/Peg 400 (SYSTANE 0.3-0.4% EYE DROPS) 15 Ml Drops, 1 DROP EACHEYE QID, #30 ML 5 Refills 03/14/19 Gabapentin (GABAPENTIN) 300 Mg Capsule, 300 MG PO TID for NEUROGENIC PAIN, CAP 03/14/19 Tramadol Hcl (TRAMADOL HCL) 50 Mg Tablet, 50 MG PO DAILY PRN for PAIN, TAB 0 Refills 03/14/19 Naproxen Sodium (NAPROXEN SODIUM) 550 Mg Tablet, 2 TAB PO DAILY, #60 TAB 03/14/18 Latanoprost (LATANOPROST) 2.5 Ml Drops, 1 DROP OP DAILY, EACH 11/16/15 Oxybutynin Chloride (OXYBUTYNIN CHLORIDE ER) 10 Mg Tab.er.24, 10 MG PO DAILY, TAB.SR 11/16/15 Aspirin (ASPIR-LOW) 81 Mg Tablet., 1 TAB PO DAILY, #30 TAB 3 Refills 11/16/15 ABIMAEL HART MD Aug 04, 2019 10:25
--- NOTE | 2019-08-04 10:38 | PDOC ---
MODERATE SEDATION ASSESSMENT RISKS/ALTERNATIVES Risks/Alternatives Risks and alternatives of this type of sedation and procedure discussed with: RISK/ALTERNATIVES: Patient H & P ON CHART H & P H & P on chart and reviewed for co-morbid conditions and appropriate labs. H&P ON CHART: Yes STATUS PREG STATUS ASSESSED: N/A MEDS/ALLERGIES REVIEWED Meds/Allergies Reviewed Medications and Allergies including time and route of recently administered narcotics and sedatives. MEDS/ALLERGIES REVIEWED: Yes ASA RATING ASA RATING: III AIRWAY ASSESSMENT Airway Assessment Airway patency, oral function limitations, presence of caps, crowns, dentures, partials, and ability to extend neck assessed. AIRWAY ASSESSMENT: Yes MALLAMPATI SCORE MALLAMPATI SCORE: II PRE-SEDATION ASSESSMENT PRE-SEDATION ASSESSMENT: Yes SHEA TELLEZ MD Aug 04, 2019 10:38
[2019-08-04] MEDS ORDERED: NITROGLYCERIN SUBLINGUAL 0.4 MG BOTTLE OF 25. SL PRN (10:45)
[2019-08-04] MEDS ORDERED: 0.9 % SODIUM CHLORIDE 10 ML DISP.SYRIN. IV PRN (10:45)
--- NOTE | 2019-08-04 10:50 | CARD ---
MR#: [id number] Date of Study: 08/04/2019 Ordering Physician: ZENOBIA HOOKER, Referring Physician: ZENOBIA HOOKER, Tech: Miracle Gar APPROVED REPORT Technologist: Miracle Gar Nurse: Lizet Polanco R.N. Procedure(s) performed: 1. Left heart catheterization and selective coronary angiography 2. Instant wave free ratio (IFR) measurement to the right coronary artery stenosis fl time: 10.4 mins dose: 67 gy/cm2 contrast: 164 ml moderate sedation: 38 MINS INDICATION The indication(s) include : unstable angina . CSHA Clinical Frailty Scale CSHA Clinical Frailty Scale: Mildly Frail Heart Failure Heart Failure: No PROCEDURE NARRATIVE After explaining the risks, benefits and alternative options, informed consent was obtained from marily ent. Patient was brought to the cardiac Activity Coordinator and her right groin was prepped and draped in the us ual fashion. 20 mL of 2% lidocaine was infiltrated into the skin and subcutaneous tissues for local a nesthesia. Arterial access was obtained in the right common femoral artery and a 6 Hong Konger sheath was inserted. 6 Hong Konger JL4 and 6 Hong Konger JR4 catheters placed to perform selective angiography of the left and right coronary arteries. LVEDP and transaortic gradients remeasured. Left ventriculography was n ot performed since recent 2-D echo showed EF 60-65%. Since patient was found to have angiographically borderline significant stenosis involving the right coronary artery, a decision was made to perform physiologic assessment using Instant wave free ratio (IFR) measurement. The right coronary artery was engaged with a 6 Hong Konger JR4 guide catheter and the s tenosis in the proximal segment was crossed with a Truveris verrata PressureWire. IFR measurement was made that was insignificant at 0.96. Hence no interventions were performed. Patient tolerated the pro cedure well. Hemostasis was achieved using Angio-Seal. There were no immediate complications. FINDINGS 1. Hemodynamics: Left ventricular end-diastolic pressure 15 mmHg. Pullback gradient of 20 mmHg acro ss the aortic valve. 2. Coronary angiography: a. The left main coronary artery arose from the left sinus of Valsalva, was short, gave rise to the left anterior descending and left circumflex arteries and did not show any significant stenosis. b. The left anterior descending artery did not show any significant stenosis. c. The left circumflex artery did not show any significant stenosis. d. The right coronary artery was a large and dominant vessel arising from the right sinus of Valsalv a that showed 50-60% stenosis in the proximal segment. This was physiologically not significant based on IFR measurement of 0.96. Conclusion Nonobstructive coronary artery disease, 50-60% stenosis involving proximal segment of right coronary artery, physiologically insignificant based on IFR measurement of 0.96. Recommendations Medical Therapy Signed by : Enzo Javed, Electronically Approved : 08/04/2019 10:50:24
--- NOTE | 2019-08-04 11:48 | NUR ---
Pt has dc order for HH but will need to work with PT/OT first to eval SNU needs. Pt is bed rest until 1445. Discussed with PT/OT and RN.
--- NOTE | 2019-08-04 14:02 | NUR ---
SW following pt. Spoke with pt and pt's DPOA, sister Radha. Both agreeable with pt to be seen by PT/OT. SW discussed SNU at [facility] (possibly tomorrow) vs [facility] today pending PT/OT. Discussed with Dc logistics planner and Nurse navigator from [facility]. RN notified.
[2019-08-04] MEDS ORDERED: MAGNESIUM CITRATE 296 ML SOLUTION. PO ONE (15:45)
--- NOTE | 2019-08-04 15:59 | NUR ---
Physical therapy recommends shelter, but patient is refusing shelter. Pt is alert and oriented. Pt is also refusing home health services.
--- NOTE | 2019-08-04 16:58 | NUR ---
Pt talked with social work and ended up accepting home health. Pt discharged home with home health. Discharge teaching done and pt notified of follow ups. Pt was given instruction not to lift items for threes days or take a bath for three days. PT was taken out by wheelchair with transportation provided by friend.
== END 2019-08-04 16:30 | disposition home health service (06) | DRG 287 ==
LOC: ER 07:51 → OBSVTOIN 09:30 → 6 SOUTH 09:30
PROVIDERS: ADMIT Internal Medicine; ATTEND Internal Medicine
PROC: 4A023N7 Measurement of Cardiac Sampling and Pressure, Left Heart, Percutaneous Approach (ICD-10-PCS; principal; 2019-08-04)
PROC: B2111ZZ Fluoroscopy of Multiple Coronary Arteries using Low Osmolar Contrast (ICD-10-PCS; 2019-08-04)
PROC: 4A033BC Measurement of Arterial Pressure, Coronary, Percutaneous Approach (ICD-10-PCS; 2019-08-04)
DX: I25.110 Atherosclerotic heart disease of native coronary artery with unstable angina pectoris (principal); G62.9 Polyneuropathy, unspecified; I08.0 Rheumatic disorders of both mitral and aortic valves; I12.9 Hypertensive chronic kidney disease with stage 1 through stage 4 chronic kidney disease, or unspecified chronic kidney disease; N18.9 Chronic kidney disease, unspecified; I73.9 Peripheral vascular disease, unspecified; G89.29 Other chronic pain; M19.90 Unspecified osteoarthritis, unspecified site; Z66 Do not resuscitate; Z96.611 Presence of right artificial shoulder joint; Z96.612 Presence of left artificial shoulder joint; Z96.659 Presence of unspecified artificial knee joint; I25.2 Old myocardial infarction; Z82.49 Family history of ischemic heart disease and other diseases of the circulatory system; Z79.82 Long term (current) use of aspirin; Z91.041 Radiographic dye allergy status
CPT/HCPCS: 93458; 93571; 96374; 99285; G0269; 36415; 71045; 71275; 80048; 80053; 80061; 83690; 84484; 85025; 85379; 93005; 93306; 93925; 99152; 99153; C1760; C1769; C1887; C1892; G0238; J1200; J1644; J2250; J2930; J3010; J3490; J7030; J7512; Q9967; 97110; C1771; G0378

== ENCOUNTER 2019-11-27 06:57 | Outpatient (CLI) | payer MEDICARE, OTHER ==
[2019-11-27] VITALS (9 sets, daily range): BP systolic 88–149; BP diastolic 52–72
[~2019-11-27] VITALS: Ht 157.5 cm; Wt 68.9 kg
[~2019-11-27 06:57] MED LIST changes: -OXYB10TA2 PO; +OXYB10TA26 PO; +SIMV10TA15 PO
[2019-11-27] MEDS ORDERED: IODIXANOL 320 MG/ML 100 ML VIAL. ONE (07:35)
[2019-11-27] MEDS ORDERED: LIDOCAINE 1% Multi-Dose 20 ML VIAL. ONE (07:35)
[2019-11-27 07:37] LABS: CALCIUM 8.9 mg/dL (8.5-10.1); CREATININE 1.2 mg/dL (0.6-1.0); GFR 42.4; POTASSIUM 3.9 mmol/L (3.5-5.1)
[2019-11-27 07:39] LABS: HEMATOCRIT 37.8 % (36.0-47.0); HEMOGLOBIN 12.6 g/dL (12.0-15.5); RED BLOOD COUNT 3.67 x10^6/uL (3.50-5.40); RED CELL DISTRIBUTION WIDTH 17.8 % (11.5-14.5); WHITE BLOOD COUNT 7.3 x10^3/uL (4.0-11.0)
[2019-11-27 07:40] LABS: PROTHROMBIN TIME PATIENT 13.5 SEC (11.7-14.0)
[2019-11-27] MEDS ORDERED: DONE5TAB7 PO (08:55)
[2019-11-27] MEDS ORDERED: CALC-584 PO (08:55)
[2019-11-27] MEDS ORDERED: HYDR12.58 PO (08:55)
[2019-11-27] MEDS ORDERED: PROP15DR OP (08:55)
[2019-11-27] MEDS ORDERED: diphenhydrAMINE 50 MG/ML VIAL ONE (09:08)
[2019-11-27] MEDS ORDERED: FAMOTIDINE 20 MG/2 ML VIAL ONE (09:08)
[2019-11-27] MEDS ORDERED: fentaNYL PF VIAL 100 MCG/2 ML VIAL ONE (09:08)
[2019-11-27] MEDS ORDERED: methylPREDNISolone SOD SUCC PF 125 MG/2 ML VIAL. ONE (09:08)
[2019-11-27] MEDS ORDERED: MIDAZOLAM HCL/PF 2 MG/2 ML VIAL. ONE (09:08)
[2019-11-27] MEDS ORDERED: HEPARIN for IV BOLUS 10,000 UNIT/10 ML VIAL. ONE (09:08)
[2019-11-27] MEDS ORDERED: MIDAZOLAM HCL/PF 2 MG/2 ML VIAL. IV ONE (09:15)
[2019-11-27] MEDS ORDERED: CONTRAST GIVEN. MC PRN (09:15)
[2019-11-27] MEDS ORDERED: IODIXANOL 320 MG/ML 100 ML VIAL. IART ONE (09:15)
[2019-11-27] MEDS ORDERED: LIDOCAINE 1% Multi-Dose 20 ML VIAL. INJ ONE (09:15)
[2019-11-27] MEDS ORDERED: fentaNYL PF VIAL 100 MCG/2 ML VIAL IV ONE (09:15)
[2019-11-27] MEDS ORDERED: methylPREDNISolone SOD SUCC PF 125 MG/2 ML VIAL. IV ONE (09:45)
[2019-11-27] MEDS ORDERED: FAMOTIDINE 20 MG/2 ML VIAL IVP ONE (09:45)
[2019-11-27] MEDS ORDERED: diphenhydrAMINE 50 MG/ML VIAL IVP ONE (09:45)
[2019-11-27] MEDS ORDERED: NITROGLYCERIN SUBLINGUAL 0.4 MG BOTTLE OF 25. SL PRN (10:15)
--- NOTE | 2019-11-27 10:15 | PDOC ---
MODERATE SEDATION ASSESSMENT RISKS/ALTERNATIVES Risks/Alternatives Risks and alternatives of this type of sedation and procedure discussed with: RISK/ALTERNATIVES: Patient H & P ON CHART H & P H & P on chart and reviewed for co-morbid conditions and appropriate labs. H&P ON CHART: Yes STATUS PREG STATUS ASSESSED: N/A MEDS/ALLERGIES REVIEWED Meds/Allergies Reviewed Medications and Allergies including time and route of recently administered narcotics and sedatives. MEDS/ALLERGIES REVIEWED: Yes ASA RATING ASA RATING: III AIRWAY ASSESSMENT Airway Assessment Airway patency, oral function limitations, presence of caps, crowns, dentures, partials, and ability to extend neck assessed. AIRWAY ASSESSMENT: Yes MALLAMPATI SCORE MALLAMPATI SCORE: II PRE-SEDATION ASSESSMENT PRE-SEDATION ASSESSMENT: Yes SHEA TELLEZ MD Nov 27, 2019 10:15
[2019-11-27] MEDS ORDERED: IV 1/2 NORMAL SALINE 1,000 ML IV SCH (10:30)
--- NOTE | 2019-11-27 10:35 | CARD ---
MR#: [id number] Date of Study: 11/27/2019 Ordering Physician: SHEA JAVED, Referring Physician: SHEA JAVED, Tech: Louisa Archibald APPROVED REPORT Patient StatusOUT-PATIENT Psychiatric Aides Teacher: Louisa Archibald Procedure(s) performed: Aortogram with bilateral lower extremity runoff fl time: 4.7 mins dose: 27 gy/cm2 contrast: 83 ml moderate sedation: 40 mins INDICATION FOR PROCEDURE The indication(s) include : Peripheral artery disease with claudication. PROCEDURE NARRATIVE After explaining the risks, benefits and alternative options, informed consent was obtained from marily ent. Patient was brought to the cardiac Furniture Polisher and her right groin was prepped and draped in the us ual fashion. 20 mL of 2% lidocaine was infiltrated into the skin and subcutaneous tissues for local a nesthesia. Arterial access was obtained the right common femoral artery and a 5 Kosovan sheath was ins erted. 5 Kosovan pigtail catheter was used to perform aortogram with bilateral lower extremity runoff. A 5 Kosovan crossover catheter was then used to cross the aortic liberty which was then exchanged over a 0.035 inch Glidewire advantage 24 Kosovan angled glide catheter and with the tip positioned in the left external iliac artery selective left lower extremity angiography was performed. Contrast injecti ons through the sheath in the right groin was performed for better visualization of below the knee ve ssels right lower extremity. Patient tolerated the procedure well. Hemostasis was achieved using mynx closure device. There were no immediate complications. FINDINGS 1. No significant stenosis involving the distal descending aorta 2. No significant stenosis involving bilateral common and external iliac arteries 3. No significant stenosis involving bilateral common femoral arteries 4. The right superficial femoral artery showed a calcified 50% stenosis in the distal segment. The l eft superficial femoral artery did not show any significant stenosis. 5. No significant stenosis in bilateral popliteal arteries. 6. There is one vessel runoff below the knee left lower extremity with 100% chronic total occlusion involving the proximal to midsegment of the left posterior tibial artery, 100% occlusion in the midse gment of the left peroneal artery. The left anterior tibial artery did not show any significant steno sis in the proximal to midsegment. The distal segment was not well visualized. 7. There is two-vessel runoff below the knee right lower extremity with right anterior tibial artery showing 100% chronic total occlusion in the proximal to midsegment. The distal segments of the right peroneal and posterior tibial arteries were not visualized. Conclusion Below the knee peripheral vascular disease as described above without any major vascular stenoses nee ding intervention. Recommendations Vascular risk factor modification and regular exercise regimen Signed by : Shea Javed, Electronically Approved : 11/27/2019 10:34:47
--- NOTE | 2019-11-27 12:31 | NUR ---
Discharge Note: SR LAURA RICHMOND Discharge instructions and discharge home medications reviewed with Patient and a copy given. All questions have been answered and understanding verbalized. Groin site remains dry and intact The following instructions and handouts were given: peripheral vascular disease, moderate sedation, groin site care, Mynx booklet. Discontinued lines and drains: SL L forearm DC'd intact. OSORIO RN Patient discharged to home with another sister via wheelchair.
== END 2019-11-27 12:40 | disposition home or self-care (01) ==
LOC: CCL 06:57
PROVIDERS: ATTEND Internal Medicine Cardiovascular Disease
DX: I70.212 Atherosclerosis of native arteries of extremities with intermittent claudication, left leg (principal); Z79.01 Long term (current) use of anticoagulants
CPT/HCPCS: 36245; 36415; 75630; 80048; 85027; 85610; 99152; 99153; C1713; C1769; C1892; G0269; J1200; J1644; J2250; J2930; J3010; J3490; Q9967

== ENCOUNTER → 2020-01-01 | Outpatient (CLI) | payer MEDICARE, OTHER ==
[2019-11-27 12:05] VITALS: BP 149/64
[~2020-01-01] MED LIST changes: +CALC-584 PO; +DONE5TAB7 PO; +HYDR12.58 PO; +PROP15DR OP
--- NOTE | 2020-01-01 13:23 | RAD ---
PROCEDURE: HIP LEFT 2V WITH PELVIS STUDY DATE: 01/01/2020 CLINICAL INDICATION / HISTORY: Left hip pain. TECHNIQUE: AP view pelvis and AP and frog-leg lateral views of the left hip COMPARISON: Pelvis and right hip x-rays of 01/29/2018 FINDINGS: The osseous structures are demineralized.. There is normal bony alignment present with the femoral heads well-seated within the acetabuli. There is no evidence of acute fracture or dislocation identified. Soft tissues show heterotopic ossification superficial to the bilateral greater trochanters. There is incidental lateral ayleen and pedicle screw construct fusion at the left in the lower lumbar spine. IMPRESSION: Surgical changes from lower lumbar spinal partial hardware fusion with no hip fracture or dislocation or other acute or aggressive osseous lesions shown by x-ray. Electronically signed by: Antonio Layne MD (01/01/2020 1:21 PM) [id number]
== END ==
LOC: RAD 12:32
PROVIDERS: ATTEND Physician Assistant Surgical
DX: M67.854 Other specified disorders of tendon, left hip (principal); M67.853 Other specified disorders of tendon, right hip; M43.26 Fusion of spine, lumbar region; M25.552 Pain in left hip
CPT/HCPCS: 73502

== ENCOUNTER 2020-01-20 09:05 | Emergency (ER) | payer MEDICARE, OTHER ==
[~2020-01-20] VITALS: Ht 160 cm; Wt 68.1 kg
[2020-01-20] MEDS ORDERED: IV NORMAL SALINE 1000ML BAG 1,000 ML IV ONE (09:45)
[2020-01-20] MEDS ORDERED: ONDANSETRON PF 4 MG/2 ML VIAL. IVP ONE (09:45)
[2020-01-20] MEDS ORDERED: fentaNYL PF VIAL 100 MCG/2 ML VIAL IVP ONE (09:45)
[2020-01-20 10:15] LABS: BASO % 1 % (0-3); EOS # 0.1 x10^3/uL (0.0-0.7); EOS % 2 % (0-3); HEMATOCRIT 38.4 % (36.0-47.0); HEMOGLOBIN 12.6 g/dL (12.0-15.5); LYMPH % 17 % (24-48); MEAN CORPUSCULAR HEMOGLOBIN 33 pg (25-35); MEAN CORPUSCULAR HGB CONC 33 g/dL (31-37); MEAN CORPUSCULAR VOLUME 101 fL (79-100); MONO # 0.5 x10^3/uL (0.0-1.1); MONO % 8 % (0-9); NEUT # 4.2 x10^3/uL (1.8-7.7); NEUT % 73 % (31-73); PLATELET COUNT 247 x10^3/uL (140-400); RED CELL DISTRIBUTION WIDTH 17.6 % (11.5-14.5); WHITE BLOOD COUNT 5.8 x10^3/uL (4.0-11.0)
[2020-01-20 10:35] LABS: CALCIUM 8.7 mg/dL (8.5-10.1); CREATININE 1.1 mg/dL (0.6-1.0); GFR 46.8; POTASSIUM 3.8 mmol/L (3.5-5.1)
[2020-01-20 10:37] LABS: PROTHROMBIN TIME PATIENT 13.1 SEC (11.7-14.0)
--- NOTE | 2020-01-20 10:39 | RAD ---
EXAM: CT Abdomen and Pelvis without IV contrast INDICATION: Back pain TECHNIQUE: Multi-detector row CT images were acquired from the lung bases through the abdomen and pelvis without the use of IV contrast. Sagittal and coronal images were acquired from the transaxial data. All CT scans performed at this facility utilize dose optimization techniques as appropriate to the exam, including the following: Automated exposure control and adjustment of the mA and/or KV according to patient size (this includes techniques or standardized protocols for targeted exams where dose is indication/reason for exam). ORAL CONTRAST: None COMPARISON: None currently available. FINDINGS: The absence of IV contrast limits evaluation of soft tissue pathology. LOWER CHEST: Multivessel coronary calcifications and calcifications of the aortic valve and mitral annulus. LIVER: Unremarkable BILIARY SYSTEM: Gallbladder is moderately distended up to a 4.4 cm diameter. No radiopaque gallstones or pericholecystic soft tissue stranding is seen. Bile ducts are not dilated. PANCREAS: Unremarkable SPLEEN: Unremarkable ADRENALS: Unremarkable KIDNEYS & URETERS: Mild bilateral perirenal stranding, compatible with chronic kidney disease. No hydronephrosis or hydroureter. There are calcifications in the left renal hilum favored to represent vascular calcifications rather than kidney stones. Otherwise, no stones noted in the urinary tract. BLADDER: Unremarkable REPRODUCTIVE ORGANS: Unremarkable GASTROINTESTINAL: No findings of bowel obstruction, perforation or acute inflammation are seen. There is a right bowel containing inguinal hernia without findings of incarceration. The appendix is not well seen but there are no findings of acute appendicitis. MESENTERY/PERITONEUM/RETROPERITONEUM: Unremarkable VASCULAR: Extensive arterial calcifications are present without aneurysmal dilation of the abdominal aorta or its major branch vessels. There is arterial tortuosity noted. LYMPH NODES: No adenopathy OSSEOUS & SOFT TISSUES: There is atrophy of the right iliac is muscle. Bones are diffusely demineralized and there is extensive posttreatment changes in the lower lumbar spine including vertebroplasty cement at L1 and ayleen and pedicle screw construct fusion on the left of L2-L3 and L4-L5. Interbody graft at L2-L3 is present. Partially imaged perineal soft tissues show asymmetric soft tissue stranding in the left gluteal cleft. IMPRESSION: No acute pathology in the abdomen or pelvis on noncontrast CT with no specific findings to explain back pain. In particular, there are no findings of obstructive stone disease in the urinary tract or of bowel obstruction or perforation. See same day CT L-spine for additional details. EXAM: CT Lumbar Spine without IV contrast INDICATION: Lower back pain. TECHNIQUE: Multi-detector row CT images were obtained through the lumbar spine without the use of IV contrast. Post-processing sagittal and coronal reconstructed images were obtained for interpretation. All CT scans performed at this facility utilize dose optimization techniques as appropriate to the exam, including the following: Automated exposure control and adjustment of the mA and/or KV according to patient size (this includes techniques or standardized protocols for targeted exams where dose is indication/reason for exam). COMPARISON: 11/15/[address] FINDINGS: The lowest fully formed disc is referred to as the L5-S1 level. ALIGNMENT: Lumbar spine is straightened. Subtle anterolisthesis of L5 on S1 of 1 to 2 mm is present along with subtle retrolisthesis of L1 on L2 1 to 2 mm are noted. OSSEOUS: Generalized osteopenia. Treated osteoporotic compression fracture at L1 with vertebroplasty cement mild extrusion into the T12-L1 disc space. No acute fracture is identified. There is also evidence of left-sided ayleen and pedicle screw construct fusion and posterior decompression in the lumbar spine. DISC SPACES: Altered level disc degenerative changes with narrowing at multiple levels including partial fusion with interbody graft at L2-L3. FACET JOINTS: Multilevel facet degenerative changes are present. SPINAL CANAL: Circumferential bony central canal narrowing is present at L5-S1 due to combination of disc bulge and anterolisthesis along with bilateral facet hypertrophy and disc loss of height. NEUROFORAMINA: Multilevel foraminal narrowing is present most conspicuously at L4-L5 and L5-S1, primarily due to disc loss of height. SOFT TISSUES: Unremarkable. IMPRESSION: Osteopenia and old compression fracture at L1 with extensive posttreatment changes as discussed. No acute or aggressive appearing osseous lesions noted. Electronically signed by: Antonio Layne MD (01/20/2020 10:36 AM) [id number]
[2020-01-20 10:40] LABS: ALBUMIN 3.1 g/dL (3.4-5.0); ALBUMIN/GLOBULIN RATIO 0.8 (1.0-1.7); MAGNESIUM 2.2 mg/dL (1.8-2.4); TOTAL BILIRUBIN 0.6 mg/dL (0.2-1.0); TOTAL PROTEIN 6.9 g/dL (6.4-8.2)
--- NOTE | 2020-01-20 11:14 | PHYS DOC ---
Past Medical History Past Medical History: Other Additional Past Medical Histor: CHRONIC PAIN Past Surgical History: Other Additional Past Surgical Histo: shoulder ; knee; back Smoking Status: Never Smoker Alcohol Use: None Drug Use: None General Adult EDM: Chief Complaint: HIP PAIN HPI: HPI: Patient is a 89 year old with history of chronic pain, dyslipidemia, chronic constipation who presents with complaining of back pain. Patient complaining of intermittent episodes of left lower back pain with radiation to left hip and thigh for the last 5 days as a sharp pain that only had pain with movement and sitting up and rated her pain 10/10. Patient denies history of the same pain even in the EMR she has history of chronic back pain and also multiple lumbar area surgeries. Patient complaining of nausea with eating for the same time and stated she was seen by her primary care physician and treated with some pain medication does not know the name without improvement of her condition. Patient states she has a bowel movement about twice a week and usually gets bowel movement after taking laxative and had a bowel movement yesterday. Patient denies focal neuro deficit, fever and chills, urinary symptoms, diarrhea, vomiting, abdominal pain, chest pain or shortness of breath and back injury. Patient is a poor historian. Review of Systems: Review of Systems: Constitutional: Denies fever or chills. [] Eyes: Denies change in visual acuity. [] HENT: Denies nasal congestion or sore throat. [] Respiratory: Denies cough or shortness of breath. [] Cardiovascular: Denies chest pain or edema. [] GI: Denies abdominal pain, vomiting, bloody stools or diarrhea, reports nausea and constipation. [] : Denies dysuria. [] Musculoskeletal: Reports back pain and joint pain Integument: Denies rash. [] Neurologic: Denies headache, focal weakness or sensory changes. [] Endocrine: Denies polyuria or polydipsia. [] Lymphatic: Denies swollen glands. [] Psychiatric: Denies depression or anxiety. [] Heart Score: Risk Factors: Risk Factors: DM, Current or recent (<one month) smoker, HTN, HLP, family history of CAD, obesity. Risk Scores: Score 0 - 3: 2.5% MACE over next 6 weeks - Discharge Home Score 4 - 6: 20.3% MACE over next 6 weeks - Admit for Clinical Observation Score 7 - 10: 72.7% MACE over next 6 weeks - Early Invasive Strategies Current Medications: Current Medications Medications (Trade) Dose Ordered Sig/Carey Start Time Stop Time Status Last Admin Dose Admin Fentanyl Citrate (Fentanyl 2ml Vial) 25 mcg 1X ONCE 01/20/20 09:45 01/20/20 09:46 DC 01/20/20 10:25 25 MCG Ondansetron HCl (Zofran) 4 mg 1X ONCE 01/20/20 09:45 01/20/20 09:46 DC 01/20/20 10:24 4 MG Sodium Chloride 1,000 ml @ 150 mls/hr 1X ONCE 01/20/20 09:45 01/20/20 16:24 01/20/20 10:24 150 MLS/HR Allergies: Allergies: Allergies Coded Allergies Type Severity Reaction Last Updated Verified No Known Medication Allergies Allergy Unknown 03/14/18 Yes Physical Exam: PE: Constitutional: Well nourished, mild distress, non-toxic appearance. [] HENT: Normocephalic, atraumatic. Eyes: PERRLA, EOMI, conjunctiva normal, no discharge. [] Neck: Normal range of motion, no tenderness, supple, no stridor. [] Cardiovascular:Heart rate regular rhythm, heart murmur [] Lungs & Thorax: Bilateral breath sounds clear to auscultation [] Abdomen: Bowel sounds normal, soft, no tenderness, no masses, no pulsatile masses. [] Skin: Warm, dry, no erythema, no rash. [] Back: No midline tenderness, left paraspinal muscle spasm, no CVA tenderness. [] Extremities: No tenderness, no cyanosis, no clubbing, ROM intact, no edema. [] Neurologic: Alert and oriented X 3, no focal deficits noted. [] Psychologic: Affect anxious, judgement normal, mood normal. [] Current Patient Data: Labs: Laboratory Tests Test 01/20/20 09:57 White Blood Count 5.8 x10^3/uL (4.0-11.0) Red Blood Count 3.80 x10^6/uL (3.50-5.40) Hemoglobin 12.6 g/dL (12.0-15.5) Hematocrit 38.4 % (36.0-47.0) Mean Corpuscular Volume 101 fL (79-100) H Mean Corpuscular Hemoglobin 33 pg (25-35) Mean Corpuscular Hemoglobin Concent 33 g/dL (31-37) Red Cell Distribution Width 17.6 % (11.5-14.5) H Platelet Count 247 x10^3/uL (140-400) Neutrophils (%) (Auto) 73 % (31-73) Lymphocytes (%) (Auto) 17 % (24-48) L Monocytes (%) (Auto) 8 % (0-9) Eosinophils (%) (Auto) 2 % (0-3) Basophils (%) (Auto) 1 % (0-3) Neutrophils # (Auto) 4.2 x10^3/uL (1.8-7.7) Lymphocytes # (Auto) 1.0 x10^3/uL (1.0-4.8) Monocytes # (Auto) 0.5 x10^3/uL (0.0-1.1) Eosinophils # (Auto) 0.1 x10^3/uL (0.0-0.7) Basophils # (Auto) 0.0 x10^3/uL (0.0-0.2) Prothrombin Time 13.1 SEC (11.7-14.0) Prothrombin Time INR 1.0 (0.8-1.1) Sodium Level 141 mmol/L (136-145) Potassium Level 3.8 mmol/L (3.5-5.1) Chloride Level 106 mmol/L (98-107) Carbon Dioxide Level 32 mmol/L (21-32) Anion Gap 3 (6-14) L Blood Urea Nitrogen 22 mg/dL (7-20) H Creatinine 1.1 mg/dL (0.6-1.0) H Estimated GFR (Cockcroft-Gault) 46.8 BUN/Creatinine Ratio 20 (6-20) Glucose Level 137 mg/dL (70-99) H Calcium Level 8.7 mg/dL (8.5-10.1) Magnesium Level 2.2 mg/dL (1.8-2.4) Total Bilirubin 0.6 mg/dL (0.2-1.0) Aspartate Amino Transferase (AST) 46 U/L (15-37) H Alanine Aminotransferase (ALT) 23 U/L (14-59) Alkaline Phosphatase 81 U/L (46-116) Creatine Kinase 540 U/L (26-192) H Troponin I Quantitative < 0.017 ng/mL (0.000-0.055) AV-Kwd-J-Type Natriuretic Peptide 214 pg/mL (0-449) Total Protein 6.9 g/dL (6.4-8.2) Albumin 3.1 g/dL (3.4-5.0) L Albumin/Globulin Ratio 0.8 (1.0-1.7) L Lipase 142 U/L (73-393) Laboratory Tests 01/20/20 09:57 Laboratory Tests 01/20/20 09:57 Vital Signs: Vital Signs Date Time Temp Pulse Resp B/P (MAP) Pulse Ox O2 Delivery O2 Flow Rate FiO2 01/20/20 10:25 19 100 Room Air 01/20/20 09:07 98.2 67 129/66 (87) 98.2 EKG: EKG: EKG interpreted by me. EKG at 0950 showed normal sinus rhythm at rate of 67, PVCs, leftward axis, no acute ST and T wave elevation. Radiology/Procedures: Radiology/Procedures: [facility] [address] [place] [address] IMAGING REPORT Signed PATIENT: LAURA RICHMOND ACCOUNT: [id number] : 1930 LOCATION: ER AGE: 89 SEX: F EXAM STATUS: PRE ER ORD. PHYSICIAN: FLORA BANUELOS MD REASON: back pain PROCEDURE: CT ABDOMEN PELVIS WO CONTRAST EXAM: CT Abdomen and Pelvis without IV contrast INDICATION: Back pain TECHNIQUE: Multi-detector row CT images were acquired from the lung bases through the abdomen and pelvis without the use of IV contrast. Sagittal and coronal images were acquired from the transaxial data. All CT scans performed at this facility utilize dose optimization techniques as appropriate to the exam, including the following: Automated exposure control and adjustment of the mA and/or KV according to patient size (this includes techniques or standardized protocols for targeted exams where dose is indication/reason for exam). ORAL CONTRAST: None COMPARISON: None currently available. FINDINGS: The absence of IV contrast limits evaluation of soft tissue pathology. LOWER CHEST: Multivessel coronary calcifications and calcifications of the aortic valve and mitral annulus. LIVER: Unremarkable BILIARY SYSTEM: Gallbladder is moderately distended up to a 4.4 cm diameter. No radiopaque gallstones or pericholecystic soft tissue stranding is seen. Bile ducts are not dilated. PANCREAS: Unremarkable SPLEEN: Unremarkable ADRENALS: Unremarkable KIDNEYS & URETERS: Mild bilateral perirenal stranding, compatible with chronic kidney disease. No hydronephrosis or hydroureter. There are calcifications in the left renal hilum favored to represent vascular calcifications rather than kidney stones. Otherwise, no stones noted in the urinary tract. BLADDER: Unremarkable REPRODUCTIVE ORGANS: Unremarkable GASTROINTESTINAL: No findings of bowel obstruction, perforation or acute inflammation are seen. There is a right bowel containing inguinal hernia without findings of incarceration. The appendix is not well seen but there are no findings of acute appendicitis. MESENTERY/PERITONEUM/RETROPERITONEUM: Unremarkable VASCULAR: Extensive arterial calcifications are present without aneurysmal dilation of the abdominal aorta or its major branch vessels. There is arterial tortuosity noted. LYMPH NODES: No adenopathy OSSEOUS & SOFT TISSUES: There is atrophy of the right iliac is muscle. Bones are diffusely demineralized and there is extensive posttreatment changes in the lower lumbar spine including vertebroplasty cement at L1 and ayleen and pedicle screw construct fusion on the left of L2-L3 and L4-L5. Interbody graft at L2-L3 is present. Partially imaged perineal soft tissues show asymmetric soft tissue stranding in the left gluteal cleft. IMPRESSION: No acute pathology in the abdomen or pelvis on noncontrast CT with no specific findings to explain back pain. In particular, there are no findings of obstructive stone disease in the urinary tract or of bowel obstruction or perforation. See same day CT L-spine for additional details. EXAM: CT Lumbar Spine without IV contrast INDICATION: Lower back pain. TECHNIQUE: Multi-detector row CT images were obtained through the lumbar spine without the use of IV contrast. Post-processing sagittal and coronal reconstructed images were obtained for interpretation. All CT scans performed at this facility utilize dose optimization techniques as appropriate to the exam, including the following: Automated exposure control and adjustment of the mA and/or KV according to patient size (this includes techniques or standardized protocols for targeted exams where dose is indication/reason for exam). COMPARISON: 11/15/[address] FINDINGS: The lowest fully formed disc is referred to as the L5-S1 level. ALIGNMENT: Lumbar spine is straightened. Subtle anterolisthesis of L5 on S1 of 1 to 2 mm is present along with subtle retrolisthesis of L1 on L2 1 to 2 mm are noted. OSSEOUS: Generalized osteopenia. Treated osteoporotic compression fracture at L1 with vertebroplasty cement mild extrusion into the T12-L1 disc space. No acute fracture is identified. There is also evidence of left-sided ayleen and pedicle screw construct fusion and posterior decompression in the lumbar spine. DISC SPACES: Altered level disc degenerative changes with narrowing at multiple levels including partial fusion with interbody graft at L2-L3. FACET JOINTS: Multilevel facet degenerative changes are present. SPINAL CANAL: Circumferential bony central canal narrowing is present at L5-S1 due to combination of disc bulge and anterolisthesis along with bilateral facet hypertrophy and disc loss of height. NEUROFORAMINA: Multilevel foraminal narrowing is present most conspicuously at L4-L5 and L5-S1, primarily due to disc loss of height. SOFT TISSUES: Unremarkable. IMPRESSION: Osteopenia and old compression fracture at L1 with extensive posttreatment changes as discussed. No acute or aggressive appearing osseous lesions noted. Electronically signed by: Sean Layne MD (01/20/2020 10:36 AM) [id number] DICTATED and SIGNED BY: SEAN LAYNE MD DATE: 01/20/20 1036 Course & Med Decision Making: Course & Med Decision Making Pertinent Labs and Imaging studies reviewed. (See chart for details) Evaluation of patient in ER showed 89-year-old female patient with complaining of low back pain intermittently for 5 days with activity. Patient also complaining of nausea. Patient had unremarkable EKG, CT of abdomen and pelvis, CT of lumbar spine except for old L1 compression fracture. Labs showed chronic renal insufficiency. Patient denied pain in ER but asking for pain medication and when she was treated with fentanyl, she stated there was no change in her pain. Patient did not want hospitalization for pain management. Plan to discharge patient with prescription of [place] and instruction to take MiraLAX for prevention of constipation. Patient had UTI and treated with Rocephin in ER and prescription for Keflex was given. I've spoken with the patient and/or caregivers. I've explained the patient's condition, diagnosis and treatment plan based on information available to me at this time. I've answered the patient's and/or caregivers questions and addressed any concerns. The patient and/or caregivers have a good understanding the patient's diagnosis, condition and treatment plan as can be expected at this point. Vital signs have been stabilized. The patient's condition is stable for discharge from the emergency department. The patient will pursue further outpatient evaluation with her primary care provider or other designated consulting physician as outlined in the discharge instructions. Patient and/or caregivers are agreeable to this plan of care and follow-up instructions have been explained in detail. The patient and/or caregi vers have received these instructions in written format and expressed understanding of these discharge instructions. The patient and her caregivers are aware that if any significant change in condition or worsening of symptoms should prompt him to immediately return to this of the closest emergency department. If an emergent department is not readily available I would encourage him to call 911. Jordyn Disclaimer: Jordyn Disclaimer: This electronic medical record was generated, in whole or in part, using a voice recognition dictation system. Departure Departure Impression: Primary Impression: Acute lumbosacral myofascial strain Qualified Codes: S39.012A - Strain of muscle, fascia and tendon of lower back, initial encounter Additional Impressions: Nausea Renal insufficiency Sciatica Qualified Codes: M54.32 - Sciatica, left side Urinary tract infection Qualified Codes: N30.00 - Acute cystitis without hematuria Disposition: HOME, SELF-CARE Condition: STABLE Referrals: ZAHEER CASTELLON MD (PCP) Patient Instructions: Lumbosacral Strain, Sciatica, Urinary Tract Infection Additional Instructions: Apply ice on your back Follow-up with your primary care physician in 3-5 days Return to ER if not getting better [id number] MiraLAX for prevention of constipation Thank you for visiting [facility]. We appreciate you trusting us with your care. If any additional problems come up don't hesitate to return to visit us. Please follow up with your primary care provider so they can plan additional care if needed and know about the problem that you had. If symptoms worsen come back to the Emergency Department. Any concerning symptoms that start such as chest pain, shortness of air, weakness or numbness on one side of the body, running high fevers or any other concerning symptoms return to the ER. Scripts Cephalexin (KEFLEX) 500 Mg Capsule 1 CAP PO Q8HRS, #21 CAP 0 Refills Prov: FLORA BANUELOS MD 01/20/20 Hydrocodone/Apap 5-325 (NORCO 5-325 TABLET) 1 Each Tablet 1 TAB PO Q6-8HRS, #14 TAB Prov: FLORA BANUELOS MD 01/20/20 FLORA BANUELOS MD Jan 20, 2020 11:14
[2020-01-20] MEDS ORDERED: HYDR-3164 PO (11:46)
[2020-01-20 11:49] LABS: BILIRUBIN,URINE NEGATIVE (NEG); CLARITY,URINE CLEAR; COLOR,URINE YELLOW; NITRITE,URINE POSITIVE (NEG); PH,URINE 7.5 (<5.0-8.0); PROTEIN,URINE 30 mg/dL (NEG-TRACE)
[2020-01-20 12:03] LABS: BACTERIA,URINE MANY /HPF (0-FEW); RBC,URINE RARE /HPF (0-2); SQUAMOUS EPITHELIAL CELL,UR MOD /LPF
[2020-01-20 12:11] VITALS: BP 140/60
[2020-01-20] MEDS ORDERED: CEPH-264 PO (12:23)
[2020-01-20] MEDS ORDERED: cefTRIAXone IV Push 1 GM VIAL. IVP ONE (12:30)
--- NOTE | 2020-01-20 19:12 | EKG ---
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
== END 2020-01-20 12:39 | disposition home or self-care (01) ==
LOC: ER 09:05
DX: S39.012A Strain of muscle, fascia and tendon of lower back, initial encounter (principal); M54.42 Lumbago with sciatica, left side; N30.00 Acute cystitis without hematuria; R11.0 Nausea; G89.29 Other chronic pain; X50.9XXA Other and unspecified overexertion or strenuous movements or postures, initial encounter; Y93.89 Activity, other specified; Y92.89 Other specified places as the place of occurrence of the external cause; Y99.8 Other external cause status
CPT/HCPCS: 36415; 74176; 80053; 81001; 82550; 83690; 83735; 83880; 84484; 85025; 85610; 87086; 93005; 96374; 96375; 99285; J0696; J2405; J3010; J7030; P9612

== ENCOUNTER → 2020-02-01 | Outpatient (CLI) | payer MEDICARE, OTHER ==
[2020-01-20 12:11] VITALS: BP 140/60
[~2020-02-01] MED LIST changes: +CEPH-264 PO
--- NOTE | 2020-02-01 07:43 | RAD ---
INDICATION: Nausea and vomiting COMPARISON: January 20, 2020 TECHNIQUE: Grayscale and color ultrasound images obtained through the abdomen. FINDINGS: Aorta/IVC: Visualized portion unremarkable. Calcific atherosclerosis. Pancreas: Visualized portions unremarkable. Liver: Echotexture within normal limits. Gallbladder: Distended. Measures up to approximately 82 x 37 mm. Common Bile Duct: Not dilated. Right Kidney: No hydronephrosis. Left Kidney: No hydronephrosis. Limited visualization secondary to overlying structures obscuring Spleen: Unremarkable. IMPRESSION: * Gallbladder is dilated. Would correlate for possible causes such as hydrops. * Common bile duct is not dilated Electronically signed by: Dick Niño MD (02/01/2020 7:40 AM) [id number]
== END | disposition home or self-care (01) ==
LOC: US 06:38
PROVIDERS: ATTEND Internal Medicine Gastroenterology
DX: K82.8 Other specified diseases of gallbladder (principal); I70.0 Atherosclerosis of aorta
CPT/HCPCS: 76700

== ENCOUNTER 2020-03-01 15:59 | Emergency (ER) | payer MEDICARE, OTHER ==
[~2020-03-01] VITALS: Ht 160 cm; Wt 63.6 kg
[2020-03-01] MEDS ORDERED: TRANEXAMIC ACID 1,000 MG/10 ML VIAL. TOP ONE (16:15)
[2020-03-01] MEDS ORDERED: LIDOCAINE WITH 8.4% SOD BICARB 3 ML DISP.SYRIN. INJ ONE (16:15)
--- NOTE | 2020-03-01 16:17 | PHYS DOC ---
Past Medical History Past Medical History: Other Additional Past Medical Histor: CHRONIC PAIN (SUZAN DELGADILLO APRN) Past Surgical History: Other Additional Past Surgical Histo: shoulder ; knee; back (SUZAN DELGADILLO APRN) Smoking Status: Never Smoker Alcohol Use: None Drug Use: None (SUZAN DELGADILLO APRN) General Adult EDM: Chief Complaint: FOOT INJURY PAIN HPI: HPI: Patient is a 89 year old female with a history of neuropathy bilaterally who presents to the ED today complaining of possible injury/bleeding to the right third toe that she noted this morning. Patient is not aware of an actual injury. She states she had clipped her right second toe a week ago and this morning she noted her right third toe was bleeding. (SUZAN DELGADILLO APRN) Review of Systems: Review of Systems: Constitutional: Denies fever or chills. [] Musculoskeletal: Denies back pain or joint pain. [] Integument: Possible injury to the right third toe, reports bleeding from the right third toe Neurologic: Denies headache, focal weakness or sensory changes. [] Psychiatric: Denies depression or anxiety. [] (SUZAN DELGADILLO APRN) Heart Score: Risk Factors: Risk Factors: DM, Current or recent (<one month) smoker, HTN, HLP, family history of CAD, obesity. Risk Scores: Score 0 - 3: 2.5% MACE over next 6 weeks - Discharge Home Score 4 - 6: 20.3% MACE over next 6 weeks - Admit for Clinical Observation Score 7 - 10: 72.7% MACE over next 6 weeks - Early Invasive Strategies (SUZAN DELGADILLO APRN) Allergies: Allergies: Allergies Coded Allergies Type Severity Reaction Last Updated Verified No Known Medication Allergies Allergy Unknown 03/14/18 Yes (SUZAN DELGADILLO APRN) Physical Exam: PE: Constitutional: Well developed, well nourished, no acute distress, non-toxic appearance. [] Skin: Warm, dry, right third toe nail is avulsed from the nail bed. Trace amount of bleeding noted. Diminished sensation to the right toes, patient reports neuropathy. There is ecchymosis noted on the right third toe ventral aspect. +2 right pedal pulse. Cap refill less than 2 seconds right toes. Right second toe nail is deformed at the tip. Back: No tenderness, no CVA tenderness. [] Extremities: No tenderness, no cyanosis, no clubbing, ROM intact, no edema. [] Neurologic: Alert and oriented X 3, normal motor function, normal sensory function, no focal deficits noted. [] Psychologic: Affect normal, judgement normal, mood normal. [] (SUZAN DELGADILLO APRN) EKG: EKG: [] (SUZAN DELGADILLO APRN) Radiology/Procedures: Radiology/Procedures: []PROCEDURE: FOOT RIGHT 3V Examination: 3 views of the right foot HISTORY: History of third toe injury COMPARISON: None available Findings/ impression: Moderate joint space loss identified in the mid tarsal joints, metatarsophalangeal joints, interphalangeal joints. Old fracture of the second metatarsal is identified. Examination is limited due to bandages overlying the forefoot. Obvious acute fracture is not evident. Electronically signed by: Marlon Coyne MD (03/01/2020 4:37 PM) [id number] DICTATED and SIGNED BY: MARLON COYNE MD DATE: 03/01/20 1637 Laceration/Wound Repair Wound Location: Right third toenail avulsion Wound's Depth, Shape: Horizontal Wound Length (cm): Approximately 2 cm Wound Explored: clean Irrigated w/ Saline (ccs): 100 Betadine Prep?: Y Anesthesia: 1% of buffered lidocaine Volume Anesthetic (ccs): 4 Wound Repaired With: Vicryl Suture Size/Type: 4.0/interrupted sutures with returning of the nail back in place Number of Sutures: 4 Progress : Wound was covered with nonstick dressing (SUZAN DELGADILLO APRN) Course & Med Decision Making: Course & Med Decision Making Pertinent Labs and Imaging studies reviewed. (See chart for details) This is a 89-year-old female patient presenting to the ED today with a possible injury to the right third toe. Patient has history of neuropathy and does not have any recollection of what injury she sustained. She noted blood on the right third toe this morning. Right foot x-rays was negative for any acute findings, noted for second toe old fracture. Right third toenail is avulsed, the nail was re-stitched back in place by me as noted in procedures. Tetanus updated in the ED. Discharged on cephalexin. Patient has an appointment with a senior java web developer on Wednesday next week. Wound care instructions and return precautions provided. (SUZAN DELGADILLO APRN) Dragon Disclaimer: Dragon Disclaimer: This electronic medical record was generated, in whole or in part, using a voice recognition dictation system. (SUZAN DELGADILLO APRN) Departure Departure Impression: Primary Impression: Nail avulsion of toe Qualified Codes: S91.209A - Unspecified open wound of unspecified toe(s) with damage to nail, initial encounter Disposition: HOME, SELF-CARE Condition: STABLE Referrals: ZAHEER CASTELLON MD (PCP) follow up with the senior java web developer next week Patient Instructions: Nail Avulsion Injury Additional Instructions: You had an avulsion of the right third toenail, keep the laceration site clean and dry. Take the prescribed antibiotics until completed. You can remove the dressing tomorrow but can protect her toe from any bumps by wearing shoes. Complete the prescribed antibiotics. See your senior java web developer next week. Scripts Cephalexin (CEPHALEXIN) 500 Mg Tablet 1 TAB PO TID, #30 TAB Prov: SUZAN DELGADILLO APRN 03/01/20 Attending Signature Attending Signature I have participated in the care of this patient and I have reviewed and agree with all pertinent clinical information above including history, exam, and recommendations. (LAURA WADDELL DO) SUZAN DELGADILLO APRN March 01, 2020 16:17 LAURA WDADELL DO March 02, 2020 06:33
--- NOTE | 2020-03-01 16:39 | RAD ---
Examination: 3 views of the right foot HISTORY: History of third toe injury COMPARISON: None available Findings/ impression: Moderate joint space loss identified in the mid tarsal joints, metatarsophalangeal joints, interphalangeal joints. Old fracture of the second metatarsal is identified. Examination is limited due to bandages overlying the forefoot. Obvious acute fracture is not evident. Electronically signed by: Marlon Coyne MD (03/01/2020 4:37 PM) [id number]
[2020-03-01] MEDS ORDERED: DIPH,PERTUSS(ACELL),TET VAC/PF 0.5 ML SYRINGE. VAX IM ONE (17:00)
[2020-03-01] MEDS ORDERED: CEPH500T PO (18:07)
[2020-03-01 18:20] VITALS: BP 125/67
== END 2020-03-01 18:22 | disposition home or self-care (01) ==
LOC: ER 15:59
DX: S91.214A Laceration without foreign body of right lesser toe(s) with damage to nail, initial encounter (principal); G89.29 Other chronic pain; G62.89 Other specified polyneuropathies; X58.XXXA Exposure to other specified factors, initial encounter; Y93.89 Activity, other specified; Y92.89 Other specified places as the place of occurrence of the external cause; Y99.8 Other external cause status
CPT/HCPCS: 11730; 73630; 90471; 90715; 99284; J3490

== ENCOUNTER → 2020-03-25 | Outpatient (CLI) | payer MEDICARE, OTHER ==
[2020-03-01 18:20] VITALS: BP 125/67
[~2020-03-25] MED LIST changes: +CEPH500T PO
[2020-03-25 13:56] LABS: BASO % 1 % (0-3); EOS # 0.2 x10^3/uL (0.0-0.7); EOS % 4 % (0-3); HEMATOCRIT 36.1 % (36.0-47.0); LYMPH % 32 % (24-48); MEAN CORPUSCULAR HEMOGLOBIN 35 pg (25-35); MEAN CORPUSCULAR HGB CONC 33 g/dL (31-37); MEAN CORPUSCULAR VOLUME 104 fL (79-100); MONO # 0.7 x10^3/uL (0.0-1.1); MONO % 12 % (0-9); NEUT # 3.2 x10^3/uL (1.8-7.7); NEUT % 52 % (31-73); PLATELET COUNT 302 x10^3/uL (140-400); RED BLOOD COUNT 3.47 x10^6/uL (3.50-5.40); RED CELL DISTRIBUTION WIDTH 18.3 % (11.5-14.5); WHITE BLOOD COUNT 6.2 x10^3/uL (4.0-11.0)
[2020-03-25 14:16] LABS: CALCIUM 9.6 mg/dL (8.5-10.1); CREATININE 1.3 mg/dL (0.6-1.0); GFR 38.6; POTASSIUM 3.7 mmol/L (3.5-5.1)
--- NOTE | 2020-03-26 07:25 | NUR ---
Lab results faxed to Dr. Contreras's office
== END | disposition home or self-care (01) ==
LOC: SURGPAT 12:52
PROVIDERS: ATTEND Surgery
DX: Z01.818 Encounter for other preprocedural examination (principal); Z11.59 Encounter for screening for other viral diseases; K81.9 Cholecystitis, unspecified
CPT/HCPCS: 36415; 80048; 82247; 85025; U0003